=== PATIENT | female | born 1945 | race Caucasian/White ===

== ENCOUNTER 2022-12-18 14:46 | Emergency (ER) | payer MEDICARE, BC, SELFPAY ==
[2022-12-18] VITALS (8 sets, daily range): BP systolic 132–185; BP diastolic 65–102; PULSE 64–85; RESP 14–18; TEMP 36.7; O2SAT 96–98; BMI 29.9
--- NOTE | 2022-12-18 15:00 | XRR_ITS ---
PROCEDURE INFORMATION: Exam: XR Left Wrist Exam date and time: 12/18/2022 3:04 PM Age: 77 years old Clinical indication: Pain; Wrist; Left; Additional info: Injury/pain, fall TECHNIQUE: Imaging protocol: Radiologic exam of the left wrist. Views: 3 or more views. COMPARISON: No relevant prior studies available. FINDINGS: Bones/joints: Acute fractures involving the distal left radial metaphysis and left ulnar styloid. Soft tissues: Soft tissue swelling. XR/XR wrist LT min 3V* [id number] IMPRESSION: Acute fractures involving the distal left radial metaphysis and left ulnar styloid.
--- NOTE | 2022-12-18 15:17 | XRR_ITS ---
PROCEDURE INFORMATION: Exam: XR Chest Exam date and time: 12/18/2022 3:25 PM Age: 77 years old Clinical indication: Cough; Additional info: Confusion TECHNIQUE: Imaging protocol: Radiologic exam of the chest. Views: 1 view. COMPARISON: No relevant prior studies available. FINDINGS: Lungs: Hyperinflation and mild interstitial prominence, without infiltrate. Pleural spaces: No pleural effusion. Heart/: Cardiac silhouette upper limits of normal in size. Bones/joints: Degenerative change. Jaimie: Nonspecific 2.1 cm nodular density overlying the right hilum, which can be better characterized with contrast enhanced CT if clinically indicated. XR/XR chest 1V portable [id number] IMPRESSION: 1. Hyperinflation and mild interstitial prominence, without infiltrate. 2. Nonspecific 2.1 cm nodular density overlying the right hilum, which can be better characterized with contrast enhanced CT if clinically indicated.
--- NOTE | 2022-12-18 15:17 | CTR_ITS ---
PROCEDURE INFORMATION: Exam: CT Head Without Contrast Exam date and time: 12/18/2022 3:38 PM Age: 77 years old Clinical indication: Injury or trauma; Fall; Blunt trauma (contusions or hematomas); Additional info: Syncope and collapse TECHNIQUE: Imaging protocol: Computed tomography of the head without contrast. Radiation optimization: All CT scans at this facility use at least one of these dose optimization techniques: automated exposure control; mA and/or kV adjustment per patient size (includes targeted exams where dose is matched to clinical indication); or iterative reconstruction. REPORTING DATA: Count of CT and Cardiac NM exams in prior 12 months: This patient has received 0 known CTs and 0 known cardiac nuclear medicine studies in the 12 months prior to the current study. COMPARISON: No relevant prior studies available. RADIATION DOSE METRICS: Total DLP (mGy-cm): 1042.58 FINDINGS: Brain: Symmetric prominence of the cortical sulci. Mild small vessel ischemic change. No acute post-traumatic brain injury. Cerebral ventricles: Normal configuration of the ventricles. Paranasal sinuses: No sinus fluid. Mastoid air cells: No mastoid effusion. Bones/joints: No acute calvarial injury. Benign appearing ovoid lytic lesions in the occiput. Soft tissues: No significant scalp hematoma. CT/CT head wo con* [id number] IMPRESSION: No acute post-traumatic brain injury.
--- NOTE | 2022-12-18 15:44 | ED_ITS ---
HPI - Fall General: Chief Complaint: Fall Stated Complaint: fall/left wrist injury Time Seen by Provider: 12/18/22 15:00 History of Present Illness: 77-year-old female presents with her family chief complaint of having a syncopal episode prior to arrival in which she injured her left wrist. The patient apparently has had increased episodes of passing out she does not recall having any chest pain or palpitations prior to it or the sensation of dizziness in which she wakes up on the floor patient's last episode was roughly a month ago. The patient is scheduled to be seen by primary care within the next week for further assessment and management. Patient does report that she has been on some strong high blood pressure medications which her heart rate has been regulated down to the 40s in which there to determine may be the culprit. Patient does not endorse recently striking her head having any head injury secondary to her loss of consciousness she does not remark having any other associated injuries besides her left wrist patient presents to the ER for further assessment and management. Associated symptoms-after fall: Denies abdominal pain, chest pain or headache(s) Review of Systems General: Reports: 10 or more systems reviewed and unremarkable except in HPI and below Const: Denies: fever(s), chills, fatigue or malaise Eyes: Denies: change in vision or blurry vision Card: Denies: chest pain or palpitations Resp: Denies: dyspnea or productive cough GI: Denies: abdominal pain, nausea or vomiting : Denies: flank pain Musc: Reports: extremity pain, extremity swelling, joint pain and joint swelling Skin/Breast: Denies: rash or pruritus Neuro: Reports: frequent falls; Denies: headache(s) Psych: Denies: anxiety or depression Cuate/Lymph: Denies: easy bleeding All/Imm: Denies: urticaria, throat swelling or facial swelling Physical Exam Narrative: EXAM NARRATIVE: Patient is alert orient x3 GCS of 15 NIH of 0 no focal neurodeficit appreciated at this time Const: COMMON NORMALS: no acute distress, patient oriented x3 and healthy appearing HENMT: COMMON NORMALS: normocephalic and atraumatic HEAD & SCALP: normocephalic and atraumatic Eye: COMMON NORMALS: Equal, round and reactive pupils present and EOMs intact bilaterally PUPIL: Yes Equal, round and reactive pupils present Neck/C-Spine: COMMON NORMALS: full ROM, supple and no JVD Lymph: LYMPHATIC: no lymphadenopathy noted Chest: COMMONS NORMALS: normal inspection of the chest and normal palpation of entire chest wall Resp: COMMON NORMALS: normal respiratory effort, No retractions and clear to auscultation bilaterally EFFORT & INSPECTION: Yes able to speak in complete sentences and Yes symmetric chest movement AUSCULTATION: clear to auscultation bilaterally Cardio: COMMON NORMALS: no JVD, regular rate and regular rhythm RATE: regul ar rate RHYTHM: regular rhythm GI: COMMON NORMALS: Normal to inspection, nondistended, normoactive bowel sounds present, Soft to palpation and non-tender INSPECTION: Yes normal to inspection PALPATION: Yes Soft to palpation : COMMON NORMALS: Yes no CVA tenderness BLADDER/KIDNEY EXAM: Yes no CVA tenderness Back/Pelvis: COMMON NORMALS: no CVA tenderness Extremity: COMMON NORMALS: negative for normal to inspection and negative for full ROM (Obvious swelling and deformity appreciated to the left wrist neurovascular ) Neuro: COMMON NORMALS: patient oriented x3, CN's II-XII intact bilaterally, moves all extremities and no focal motor deficits Psych: COMMON NORMALS: mental status grossly normal, Normal thought process present, cooperative and normal affect THOUGHT PROCESS: Normal thought process present Skin: COMMON NORMALS: no rashes or lesions noted GENERAL SKIN EXAM: no rashes or lesions noted Course Vital Signs: Vital signs: Vital Signs Temperature 98.1 F 12/18/22 14:51 Pulse Rate 70 12/18/22 17:45 Respiratory Rate 15 12/18/22 17:45 Blood Pressure 139/79 12/18/22 17:45 Pulse Oximetry 96 12/18/22 17:45 Oxygen Delivery Me thod Room Air 12/18/22 14:51 MDM - Fall Medical Decision Making Due to patient's symptoms and condition an IV will be established cardiac neuro work-up will be obtained for the patient's recent syncopal episodes in which patient had an x-ray obtained of the left wrist that revealed a distal radius fracture. Patient was placed into a sugar-tong splint and provided limited doses of fentanyl for her pain control we will continue to follow. Remainder lab work imaging came back reassuring is unclear whether or not was contribute the patient having her recent syncopal episodes advise proper follow- up outpatient with primary care in 3 to 5 days and patient was advised to return the interim if any of her symptoms persist or she was provided with limited prescription of hydrocodone for her breakthrough pain control. Lab Data 12/18/22 15:49 12/18/22 15:49 Radiology Impressions Wrist X-Ray 12/18/22 15:00 IMPRESSION: Acute fractures involving the distal left radial metaphysis and left ulnar styloid. Chest X-Ray 12/18/22 15:17 IMPRESSION: 1. Hyperinflation and mild interstitial prominence, without infiltrate. 2. Nonspecific 2.1 cm nodular density overlying the right hilum, which can be better characterized with contrast enhanced CT if clinically indicated. Head CT 12/18/22 15:17 IMPRESSION: No acute post-traumatic brain injury. Chest CTA 12/18/22 16:51 IMPRESSION: 1. No evidence of pulmonary embolism. 2. No acute finding in the chest 3. Mild cardiomegaly 4. Coronary artery calcifications. Laboratory Results WBC 10.4 10^3/uL (4.0-10.0) H 12/18/22 15:49 RBC 4.87 10^6/uL (4.1-5.3) 12/18/22 15:49 Hgb 14.8 g/dL (11.5-15.3) 12/18/22 15:49 Hct 43.5 % (37.0-47.0) 12/18/22 15:49 MCV 89.3 fl (81-99) 12/18/22 15:49 MCH 30.4 pg (28.0-34.0) 12/18/22 15:49 MCHC 34.0 g/dL (30.0-36.0) 12/18/22 15:49 RDW 12.3 % (12.1-15.1) 12/18/22 15:49 Plt Count 196 10^3/cmm (130-400) 12/18/22 15:49 MPV 10.3 fL (7.4-10.4) 12/18/22 15:49 Neut % (Auto) 71.0 % 12/18/22 15:49 Lymph % (Auto) 19.0 % 12/18/22 15:49 [place] % (Auto) 7.0 % 12/18/22 15:49 Eos % (Auto) 1.9 % 12/18/22 15:49 Baso % (Auto) 0.7 % 12/18/22 15:49 Neut # (Auto) 7.37 10^3/uL (1.8-7.7) 12/18/22 15:49 Lymph # (Auto) 2.0 10^3/uL (0.8-4.8) 12/18/22 15:49 [place] # (Auto) 0.7 10^3/uL (0.2-0.9) 12/18/22 15:49 Eos # (Auto) 0.2 10^3/uL (0.0-0.8) 12/18/22 15:49 Baso # (Auto) 0.1 10^3/uL (0.0-0.1) 12/18/22 15:49 Nucleated RBC % (auto) 0 % 12/18/22 15:49 Nucleated RBCs # 0.0 /100WBC 12/18/22 15:49 Sodium 141 mmol/L (136-145) 12/18/22 15:49 Potassium 3.8 mmol/L (3.5-5.1) 12/18/22 15:49 Chloride 103 mmol/L (98-107) 12/18/22 15:49 Carbon Dioxide 27 mmol/L (22-29) 12/18/22 15:49 Anion Gap 14.8 (5-19) 12/18/22 15:49 BUN 13 mg/dL (8-23) 12/18/22 15:49 Creatinine 0.6 mg/dL (0.5-0.9) 12/18/22 15:49 GFR Calculation Not Reportable 12/18/22 15:49 Glucose 99 mg/dL (65-115) 12/18/22 15:49 Calculated Osmolality 292 mOsm/kg (285-295) 12/18/22 15:49 Calcium 9.6 mg/dL (8.5-10.5) 12/18/22 15:49 Total Bilirubin 0.5 mg/dL (0.15-1.2) 12/18/22 15:49 AST 23 U/L (0-32) 12/18/22 15:49 ALT 17 U/L (0-33) 12/18/22 15:49 Alkaline Phosphatase 83 U/L (35-105) 12/18/22 15:49 Troponin T Baseline 6 ng/L (0-10) 12/18/22 15:49 NT-Pro-B Natriuret Pep 204 pg/mL (0-450) 12/18/22 15:49 Total Protein 7.6 g/dL (6.6-8.7) 12/18/22 15:49 Albumin 4.5 g/dL (3.5-5.2) 12/18/22 15:49 Globulin 3.1 g/dL (1.3-4.6) 12/18/22 15:49 Urine Color Yellow (Yellow) 12/18/22 16:09 Urine Appearance Clear (CLEAR) 12/18/22 16:09 Urine pH 7 (5-7) 12/18/22 16:09 Ur Specific [place] 1.010 (1.005-1.030) 12/18/22 16:09 Urine Protein Neg (Negative) 12/18/22 16:09 Urine Glucose (UA) Norm (Normal) 12/18/22 16:09 Urine Ketones Negative (Negative) 12/18/22 16:09 Urine Blood Neg (Negative) 12/18/22 16:09 Urine Nitrate Negative (Negative) 12/18/22 16:09 Urine Bilirubin Neg (Negative) 12/18/22 16:09 Urine Urobilinogen Norm mg/dL (Negative) 12/18/22 16:09 Ur Leukocyte Esterase Negative (Negative) 12/18/22 16:09 Discharge Plan Discharge Patient Disposition: Home Clinical Impression: Syncope and collapse, Distal radius fracture, left Condition: Stable Prescriptions: New hydrocodone-acetaminophen 5-325 mg tablet 1 tab PO Q6H PRN (Reason: pain) Qty: 20 0RF No Action flaxseed oil 1,000 mg Capsule 1,000 mg PO DAILY Rx Instructions: administer with a meal clonidine HCl 0.2 mg tablet 0.2 mg PO BID famotidine 20 mg Tablet 20 mg PO DAILY hydrochlorothiazide 25 mg tablet 25 mg PO DAILY propranolol 120 mg capsule,extended release 24 hr 120 mg PO DAILY magnesium 200 mg Tablet 200 mg PO DAILY Vitamin D3 125 mcg (5,000 unit) Tablet 125 mcg PO DAILY Fish Oil 1,000 mg (120 mg-180 mg) Capsule 1 cap PO DAILY Women's Multivitamin 18 mg iron-400 mcg-500 mg Tablet 1 tab PO DAILY Discharge Orders: Discharge ED (Routine); Ordered 12/18/22 Ordered By: Tony Bustamante Referrals: Morelia Iglesias NP [Primary Care Provider] - 1-3 days Nallely Duke MD [Physician] - 4-7 days (For further assessment and management of your distal wrist fracture) Discharge Diet: Advance as tolerated Discharge Activity: Increase activity as tolerated Patient Instructions: Wrist Fracture in Adults (ED), Syncope (ED), Opioid Safety, Pain Management Activity Restrictions/Additional Instructions: Please follow-up follow-up your primary care doctor or orthopedic doctor next to 3 to 5 days use the provided splint until seen by them take medication as p rescribed and please return the interim if any of her symptoms persist or worse. Coding Level of Care Code ED [employer] for Sara Henderson
[2022-12-18 16:00] LABS: Basophils # 0.1 10^3/uL (0.0-0.1); Basophils % 0.7 %; Eosinophils # 0.2 10^3/uL (0.0-0.8); Eosinophils % 1.9 %; Hematocrit 43.5 % (37.0-47.0); Hemoglobin 14.8 g/dL (11.5-15.3); Mean Corpuscular Hemoglobin 30.4 pg (28.0-34.0); Mean Corpuscular Volume 89.3 fl (81-99); Mean Platelet Volume 10.3 fL (7.4-10.4); Monocytes # 0.7 10^3/uL (0.2-0.9); Neutrophils # 7.37 10^3/uL (1.8-7.7); Nucleated Red Blood Cells % 0 %; Platelet Count 196 10^3/cmm (130-400); Red Blood Count 4.87 10^6/uL (4.1-5.3); Red Cell Distribution Width 12.3 % (12.1-15.1); White Blood Count 10.4 10^3/uL (4.0-10.0)
--- NOTE | 2022-12-18 16:04 | ECG_ITS ---
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 Measurements Intervals [place] Rate: 58 P: 29 NE: 143 QRS: 4 QRSD: 91 T: 31 QT: 418 QTc: 412 Interpretive Statements SINUS BRADYCARDIA No previous ECG available for comparison Electronically Signed On 12-18-2022 19:26:47 CDT by Janna Talbert M.D. [id number]
[2022-12-18 16:26] LABS: Add Urine Microscopic? NO; Charge for UA Resulting for Rev
[2022-12-18 16:28] LABS: Bilirubin Urine Neg (Negative); Blood Urine Neg (Negative); Glucose Urine UA Norm (Normal); Ketones Urine Negative (Negative); Leukocyte Esterase Urine Negative (Negative); Nitrate Urine Negative (Negative); Protein Urine Neg (Negative); Urine Appearance Clear (CLEAR); Urine Color Yellow (Yellow); Urobilinogen Urine Norm (Negative); pH Urine 7 (5-7)
[2022-12-18 16:32] LABS: Troponin(5th) Baseline 6 ng/L (0-10)
[2022-12-18 16:41] LABS: Alanine Aminotransferase 17 U/L (0-33); Albumin Level 4.5 g/dL (3.5-5.2); Alkaline Phosphatase 83 U/L (35-105); Aspartate Amino Transferase 23 U/L (0-32); Blood Urea Nitrogen 13 mg/dL (8-23); Calcium 9.6 mg/dL (8.5-10.5); Carbon Dioxide 27 mmol/L (22-29); Chloride 103 mmol/L (98-107); Globulin 3.1 g/dL (1.3-4.6); Glucose 99 mg/dL (65-115); NT Pro B Type Natriuretic Pept 204 pg/mL (0-450); Osmolality Calculated 292 mOsm/kg (285-295); Sodium 141 mmol/L (136-145); Total Bilirubin 0.5 mg/dL (0.15-1.2); Total Protein 7.6 g/dL (6.6-8.7)
--- NOTE | 2022-12-18 16:51 | CTR_ITS ---
PROCEDURE INFORMATION: Exam: CTA Chest With Contrast Exam date and time: 12/18/2022 5:06 PM Age: 77 years old Clinical indication: Dyspnea; Additional info: Syncope and collapse with pulmonary nodule. TECHNIQUE: Imaging protocol: Computed tomographic angiography of the chest with contrast. 3D rendering (Not supervised by radiologist): MIP and/or 3D reconstructed images were created by the technologist. Radiation optimization: All CT scans at this facility use at least one of these dose optimization techniques: automated exposure control; mA and/or kV adjustment per patient size (includes targeted exams where dose is matched to clinical indication); or iterative reconstruction. Contrast material: OMNI 350; Contrast volume: 71 ml; Contrast route: INTRAVENOUS (IV); REPORTING DATA: Count of CT and Cardiac NM exams in prior 12 months: This patient has received 0 known CTs and 0 known cardiac nuclear medicine studies in the 12 months prior to the current study. COMPARISON: CR (CHEST, ) 12/18/2022 3:25 PM RADIATION DOSE METRICS: Total DLP (mGy-cm): 355.12 FINDINGS: Pulmonary arteries: There is no evidence of filling defects within the pulmonary arterial circulation to suggest pulmonary embolism. Aorta: There is moderate ectasia of the ascending thoracic aorta which measures 4 cm. There is no evidence of thoracic aortic dissection. Lungs: Lungs are clear. Pleural spaces: Unremarkable. No pneumothorax. No pleural effusion. Heart: The heart is mildly enlarged. Coronary arteries: There is moderate atherosclerotic calcification of the coronary arteries. Lymph nodes: There is no evidence of lymphadenopathy. Bones/joints: Unremarkable. No acute fracture. Soft tissues: Unremarkable. CT/CT angio chest PE protcl [id number] IMPRESSION: 1. No evidence of pulmonary embolism. 2. No acute finding in the chest 3. Mild cardiomegaly 4. Coronary artery calcifications.
[2022-12-18 16:59] LABS: Anion Gap 14.8 (5-19); Potassium 3.8 mmol/L (3.5-5.1)
[2022-12-18] MEDS: sodium chloride 0.9% 1,000 ML 999 ML IV (17:19)
[2022-12-18] MEDS: fentaNYL 50 mcg/mL INJ 2mL 25 MCG IVP (17:19)
[2022-12-18] MEDS: ondansetron 2 mg/ML SDV 2 mL 4 MG IVP (17:19)
[2022-12-18] MEDS: iohexol 350 mg/mL 500 mL Btl (per mL) IV (17:20)
[2022-12-18] MEDS: hyDRALAzine 20 mg/mL INJ 1 mL 10 MG IVP (17:29)
[2022-12-18] MEDS: fentaNYL 50 mcg/mL INJ 2mL IVP (17:35)
--- NOTE | 2022-12-18 17:41 | ECG_ITS ---
[facility] Test Date: 2022-12-18 Pat Name: Leena Bowser Department: Room: Gender: Female Professional Benefits Sales Consultant: : 1945 Requested By: Tony Bustamante Order Number: [id number] Segundo MD: Janna Talbert M.D. Measurements Intervals [place] Rate: 71 P: 67 IA: 176 QRS: 11 QRSD: 102 T: 40 QT: 407 QTc: 442 Interpretive Statements SINUS RHYTHM Compared to ECG 12/18/2022 16:04:50 Sinus bradycardia no longer present Electronically Signed On 12-18-2022 19:34:05 CDT by Janna Talbert M.D. [email or web address] systemLyon Collegecrystal clinic orth[facility] [email or web address]/[id number]
[2022-12-18 18:51] LABS: Troponin 5 2HR Delta 0 ABS# (0-10)
[2022-12-18] MEDS: HYDROcodone-acetaminophen 5-325 mg Tablet 2 TAB PO (18:56)
== END 2022-12-18 19:02 | disposition home or self-care (01) ==
PROVIDERS: Emergency Provider Emergency Medicine; PCP Nurse Practitioner Family
DX: R55 Syncope and collapse (principal); S52.502A Unspecified fracture of the lower end of left radius, initial encounter for closed fracture; W18.39XA Other fall on same level, initial encounter
CPT/HCPCS: 36415; 70450; 71045; 71275; 73110; 80053; 81003; 83880; 84484; 85025; 93005; 96361; 96374; 96375; 96376; 99285; J0360; J2405; J3010; J7030; Q9967

== ENCOUNTER → 2022-12-27 10:05 | Outpatient (BNVA) | payer MEDICARE, BC, SELFPAY | PROVIDERS: PCP Nurse Practitioner Family; Referring Provider Emergency Medicine; Visit Provider Specialist | DX: S52.502A Unspecified fracture of the lower end of left radius, initial encounter for closed fracture (principal); S52.602A Unspecified fracture of lower end of left ulna, initial encounter for closed fracture; W18.30XA Fall on same level, unspecified, initial encounter | CPT/HCPCS: 73110 ==

== ENCOUNTER 2022-12-27 14:39 | Outpatient (CLI) | payer MEDICARE, BC, SELFPAY | END 2022-12-27 14:40 | disposition home or self-care (01) | LOC: SPT 14:39 | PROVIDERS: PCP Nurse Practitioner Family; Visit Provider Specialist | DX: Z46.89 Encounter for fitting and adjustment of other specified devices (principal); S52.592D Other fractures of lower end of left radius, subsequent encounter for closed fracture with routine healing; X58.XXXD Exposure to other specified factors, subsequent encounter | CPT/HCPCS: 25600; 97760; 99204; L3982 ==

== ENCOUNTER → 2023-01-06 10:12 | Outpatient (BNVA) | payer MEDICARE, BC, SELFPAY | PROVIDERS: PCP Nurse Practitioner Family; Visit Provider Specialist | DX: S52.502D Unspecified fracture of the lower end of left radius, subsequent encounter for closed fracture with routine healing (principal); S52.602D Unspecified fracture of lower end of left ulna, subsequent encounter for closed fracture with routine healing; X58.XXXD Exposure to other specified factors, subsequent encounter | CPT/HCPCS: 73110; 99024 ==

== ENCOUNTER → 2023-02-02 10:34 | Outpatient (BNVA) | payer MEDICARE, BC, SELFPAY | PROVIDERS: PCP Nurse Practitioner Family; Visit Provider Specialist | DX: S52.502D Unspecified fracture of the lower end of left radius, subsequent encounter for closed fracture with routine healing (principal); S52.602D Unspecified fracture of lower end of left ulna, subsequent encounter for closed fracture with routine healing; X58.XXXD Exposure to other specified factors, subsequent encounter | CPT/HCPCS: 73110; 99024 ==

== ENCOUNTER 2023-02-15 08:17 | Outpatient (RCR) | payer MEDICARE, BC, SELFPAY | END 2023-03-07 23:59 | disposition home or self-care (01) | LOC: SOT 08:17 | PROVIDERS: PCP Nurse Practitioner Family; Visit Provider Specialist | DX: S62.102A Fracture of unspecified carpal bone, left wrist, initial encounter for closed fracture (principal); X58.XXXA Exposure to other specified factors, initial encounter | CPT/HCPCS: 97022; 97110; 97140; 97166; 97530 ==

== ENCOUNTER → 2023-02-23 10:15 | Outpatient (BNVA) | payer MEDICARE, BC, SELFPAY | PROVIDERS: PCP Nurse Practitioner Family; Visit Provider Specialist | DX: S52.502D Unspecified fracture of the lower end of left radius, subsequent encounter for closed fracture with routine healing (principal); S52.602D Unspecified fracture of lower end of left ulna, subsequent encounter for closed fracture with routine healing; X58.XXXD Exposure to other specified factors, subsequent encounter | CPT/HCPCS: 73110; 99024 ==

== ENCOUNTER 2023-03-08 06:00 | Outpatient (RCR) | payer MEDICARE, BC, SELFPAY | END 2023-04-07 23:59 | disposition home or self-care (01) | LOC: SOT 06:00 | PROVIDERS: PCP Nurse Practitioner Family; Visit Provider Specialist | DX: S62.102D Fracture of unspecified carpal bone, left wrist, subsequent encounter for fracture with routine healing (principal); X58.XXXD Exposure to other specified factors, subsequent encounter | CPT/HCPCS: 97022; 97110; 97140 ==

== ENCOUNTER 2024-04-14 22:37 | Emergency (ER) | payer MEDICARE, BC, SELFPAY ==
[2024-04-14 22:41] VITALS: BP 183/104; PULSE 66; RESP 17; TEMP 36.8; O2SAT 95; BMI 32.5
--- NOTE | 2024-04-14 22:52 | ED_ITS ---
HPI - Back Pain/Injury General: Chief Complaint: Back Pain/Injury Stated Complaint: Back /Leg/ Foot pain on left side Time Seen by Provider: 04/14/24 22:46 Source: patient Mode of arrival: ambulatory Limitations: no limitations History of Present Illness: Patient is a 79-year-old female who presents the emergency department complaining of left lower back pain with radiation down her left leg onset ch ronically but worsening past couple of days. States she was diagnosed with sciatica in the past, has not gotten relief from her [id number] medications. No recent trauma or injuries. No bowel or bladder issues, fever, or other red flag back symptoms. Ambulatory into the emergency department, though with pain. MD elicited complaint: back pain Pertinent past history: prior back pain Timing: progressively worsening Severity: severe Similar Symptoms Previously: Yes Quality: sharp Location: left lower back Radiation: left leg below the knee Exacerbating factors: movement Associated symptoms: Deny abdominal pain, chills, fever(s), nausea or vomiting Related Data Home Medications Medication Instructions Recorded Confirmed cholecalciferol (vitamin D3) 125 125 mcg PO DAILY 12/18/22 02/23/23 mcg (5,000 unit) tablet (Vitamin D3) clonidine HCl 0.2 mg tablet 0.2 mg PO BID 12/18/22 02/23/23 famotidine 20 mg tablet 20 mg PO DAILY 12/18/22 02/23/23 flaxseed oil 1,000 mg capsule 1,000 mg PO DAILY 12/18/22 02/23/23 hydrochlorothiazide 25 mg tablet 25 mg PO DAILY 12/18/22 02/23/23 magnesium 200 mg tablet 200 mg PO DAILY 12/18/22 02/23/23 gmtkurqg-cex-cejg-FA-Ca carb-vit K 1 tab PO DAILY 12/18/22 02/23/23 18 mg iron-400 mcg-500 mg tablet omega 9-keh-ysh-fish oil 1,000 mg 1 cap PO DAILY 12/18/22 02/23/23 (120 mg-180 mg) capsule (Fish Oil) propranolol 120 mg capsule,24 120 mg PO DAILY 12/18/22 02/23/23 hr,extended release Previous Rx's Medication Instructions Recorded hydrocodone 5 mg-acetaminophen 325 1 tab PO Q6H PRN pain #20 tabs 12/18/22 mg tablet Fast Form Splint #1 ea 12/27/22 naproxen 500 mg tablet 500 mg PO BID PRN pain #30 tabs 04/15/24 Allergies Allergy/AdvReac Type Severity Reaction Status Date / Time No Known Allergies Allergy Verified 04/14/24 22:44 Review of Systems General: Reports: 10 or more systems reviewed and unremarkable except in HPI and below Const: Denies: fever(s) or chills Card: Denies: chest pain Resp: Denies: dyspnea or productive cough GI: Denies: abdominal pain, nausea, vomiting or diarrhea : Denies: flank pain Musc: Reports: back pain and extremity pain; Denies: neck pain, extremity swelling, joint pain, joint swelling, joint redness, joint warmth, limited range of motion or muscle weakness Skin/Breast: Denies: rash Neuro: Denies: headache(s), numbness in extremities or weakness in extremities Physical Exam Const: COMMON NORMALS: no acute distress, patient oriented x3, no limitations, healthy appearing, alert and well nourished HENMT: COMMON NORMALS: normocephalic and atraumatic HEAD & SCALP: normocephalic and atraumatic Neck/C-Spine: COMMON NORMALS: full ROM, supple and no meningeal signs Resp: COMMON NORMALS: normal respiratory effort, No use of accessory muscles a nd clear to auscultation bilaterally AUSCULTATION: clear to auscultation bilaterally Cardio: COMMON NORMALS: regular rate and regular rhythm RATE: regular rate RHYTHM: regular rhythm Back/Pelvis: OTHER: Parathoracic muscles on the left side somewhat tender to palpation, no spinous process tenderness. No step-off deformity or signs of trauma Extremity: COMMON NORMALS: normal to inspection, full ROM, capillary refill normal, no joint enlargement and no clubbing, cyanosis or edema Neuro: COMMON NORMALS: patient oriented x3, moves all extremities, no focal motor deficits, no sensory deficits noted and deep tendon reflexes 2+ bilaterally SENSORIUM/ORIENTATION: Yes alert MENINGEAL SIGNS: Yes no meningeal signs Skin: COMMON NORMALS: no rashes or lesions noted GENERAL SKIN EXAM: no rashes or lesions noted Course Vital Signs: Vital signs: Vital Signs Temperature 98.3 F 04/14/24 22:41 Pulse Rate 70 04/15/24 00:05 Respiratory Rate 16 04/15/24 00:05 Blood Pressure 160/94 09/08/24 00:05 Pulse Oximetry 95 04/15/24 00:05 Oxygen Delivery Me thod Room Air 04/14/24 22:41 MDM - Back Pain/Injury Medical Decision Making Patient reported with complaints of and acute exacerbation of her sciatica. No recent trauma was reported. She had no red flag back symptoms to report. Vitals were normal. She did report some relief after receiving muscle relaxer and pain medicine, and will be discharged on muscle relaxers. No need for imaging at this time. He is instructed to follow-up with primary care for further evaluation if she continues to have pain. No radiology studies performed this visit Discharge Plan Discharge Patient Disposition: Home Clinical Impression: Sciatica Qualifiers: Laterality: left Qualified Code(s): M54.32 - Sciatica, left side Condition: Stable Prescriptions: New naproxen 500 mg tablet 500 mg PO BID PRN (Reason: pain) Qty: 30 0RF No Action (DME) Fast Form Splint See Rx Instructions .Route .MEDSUPPLY Qty: 1 0RF Rx Instructions: As directed flaxseed oil 1,000 mg Capsule 1,000 mg PO DAILY Rx Instructions: administer with a meal clonidine HCl 0.2 mg tablet 0.2 mg PO BID famotidine 20 mg Tablet 20 mg PO DAILY hydrochlorothiazide 25 mg tablet 25 mg PO DAILY propranolol 120 mg capsule,extended release 24 hr 120 mg PO DAILY magnesium 200 mg Tablet 200 mg PO DAILY Vitamin D3 125 mcg (5,000 unit) Tablet 125 mcg PO DAILY Fish Oil 1,000 mg (120 mg-180 mg) Capsule 1 cap PO DAILY Women's Multivitamin 18 mg iron-400 mcg-500 mg Tablet 1 tab PO DAILY hydrocodone-acetaminophen 5-325 mg tablet 1 tab PO Q6H PRN (Reason: pain) Qty: 20 0RF Discharge Orders: Discharge ED (Routine); Ordered 04/15/24 Ordered By: Vinay Foster Referrals: Morelia Iglesias NP [Primary Care Provider] - Discharge Diet: Usual diet Discharge Activity: Increase activity as tolerated Patient Instructions: Sciatica (ED) Activity Restrictions/Additional Instructions: Take naproxen as prescribed. Gentle range of motion exercises as tolerated. Follow-up with primary care with any furthering of pain. Apply ice and heat as you have been doing. Return with any new or worsening. Coding Level of Care Code ED First Officer And Flight Instructor for Sara Henderson
[2024-04-14] MEDS: ketorolac 60 mg/2 mL INJ IM (22:56)
[2024-04-14] MEDS: orphenadrine 30 mg/mL Inj 2 mL 60 MG IM (22:56)
[2024-04-14] MEDS: dexamethasone 10 mg/mL INJ IM (23:36)
[2024-04-14] MEDS: HYDROcodone-acetaminophen 7.5-325 mg Tablet 1 TAB PO (23:36)
[2024-04-15 00:05] VITALS: BP 160/94; PULSE 70; RESP 16; O2SAT 95
== END 2024-04-15 00:09 | disposition home or self-care (01) ==
PROVIDERS: Emergency Provider Physician Assistant; PCP Nurse Practitioner Family
DX: M54.32 Sciatica, left side (principal)
CPT/HCPCS: 96372; 99284; J1100; J1885; J2360

== ENCOUNTER 2024-04-17 09:17 | Emergency (ER) | payer MEDICARE, BC, SELFPAY ==
[2024-04-17 09:21] VITALS: BP 181/81; PULSE 57; RESP 18; TEMP 36.8; O2SAT 94; BMI 32.5
--- NOTE | 2024-04-17 09:23 | ED_ITS ---
HPI - Back Pain/Injury 2 General: Chief Complaint: Back Pain/Injury Stated Complaint: Back Pain Time Seen by Provider: 04/17/24 09:22 Source: patient Mode of arrival: EMS Limitations: no limitations History of Present Illness: Patient is a 79-year-old female presents to ED today with a complaint of left hip and lower leg pain. Patient states her symptoms initially began approximately 1 to 1.5 months ago. She was initially seen by her primary care provider through the [place] [facility]. She states she was initially prescribed physical therapy but by the time they called to set up sessions her pain had subsided. Patient states she went approximately 3 weeks without pain/completely asymptomatic until around last week when pain began again. No known injury/trauma/or provoking factors. Patient has been seen by PCP again and was seen here in our emergency department on Tuesday for identical symptoms. States she has been taking Naproxen and Lortab without relief of her symptoms. Patient states the pain starts in the posterior aspect of the left hip and then radiates down the left lower extremity mainly on the lateral aspect. She has not noticed any swelling to the extremity. No color or temperature changes. She is not having any saddle anesthesia or urinary retention/bowel incontinence. She feels like pain is worse with ambulation. MD elicited complaint: other (L hip/LE pain) Onset (ago): day(s) Timing: constant Severity: severe Similar Symptoms Previously: Yes Location: left lower back Radiation: left leg below the knee Exacerbating factors: walking Relieving factors: none Associated symptoms: Reports no associated symptoms and difficulty walking; Deny abdominal pain, chills, dysuria, fatigue, fever(s) or urinary urgency Work related injury: No Related Data Home Medications Medication Instructions Recorded Confirmed cholecalciferol (vitamin D3) 125 125 mcg PO DAILY 12/18/22 04/17/24 mcg (5,000 unit) tablet (Vitamin D3) clonidine HCl 0.2 mg tablet 0.2 mg PO BID 12/18/22 04/17/24 famotidine 20 mg tablet 20 mg PO DAILY 12/18/22 04/17/24 hydrochlorothiazide 25 mg tablet 25 mg PO DAILY 12/18/22 04/17/24 magnesium 200 mg tablet 200 mg PO DAILY 12/18/22 04/17/24 wxukjgku-bam-dmja-FA-Ca carb-vit K 1 tab PO DAILY 12/18/22 04/17/24 18 mg iron-400 mcg-500 mg tablet propranolol 120 mg capsule,24 120 mg PO DAILY 12/18/22 04/17/24 hr,extended release Previous Rx's Medication Instructions Recorded hydrocodone 5 mg-acetaminophen 325 1 tab PO Q6H PRN pain #20 tabs 12/18/22 mg tablet Fast Form Splint #1 ea 12/27/22 naproxen 500 mg tablet 500 mg PO BID PRN pain #30 tabs 04/15/24 gabapentin 300 mg capsule 300 mg PO DAILY #60 caps 04/17/24 Allergies Allergy/AdvReac Type Severity Reaction Status Date / Time No Known Allergies Allergy Verified 04/14/24 22:44 Review of Systems 2 Const: Denies: fever(s), chills, body aches, fatigue or malaise Card: Denies: chest pain Resp: Denies: dyspnea GI: Denies: abdominal pain : Denies: flank pain, difficulty voiding, dysuria, urinary frequency, urinary urgency or urinary hesitancy Musc: Reports: extremity pain and joint pain; Denies: neck pain, extremity swelling, joint swelling, joint redness, joint warmth or limited range of motion Skin/Breast: Denies: rash Neuro: Reports: difficulty walking; Denies: headache(s), numbness in extremities or weakness in extremities Physical Exam 2 Const: COMMON NORMALS: no acute distress, average body habitus, patient oriented x3, no limitations, healthy appearing, alert and well nourished G ENERAL APPEARANCE: cooperative ORIENTATION/CONSCIOUSNESS: Yes awake, Yes oriented to person, Yes oriented to place and Yes oriented to time OTHER: states she received 100mcg fentanyl in route and pain is better now than it has been in several days; feels a little nauseous Neck/C-Spine: COMMON NORMALS: full ROM and no meningeal signs CERVICAL SPINE: No Cervical spine tenderness and No Paracervical muscle tenderness Resp: COMMON NORMALS: normal respiratory effort : COMMON NORMALS: Yes no CVA tenderness BLADDER/KIDNEY EXAM: Yes no CVA tenderness Back/Pelvis: COMMON NORMALS: no CVA tenderness, thoracic and lumbar spine normal to inspection, no thoracic nor lumbar tenderness, thoraco-lumbar ROM normal and straight leg raise negative bilaterally LUMBAR SPINE/LOWER BACK: N o lumbar spinal tenderness PELVIS: Yes buttock abnormal Buttock abnormal laterality: left Left buttock abnormal details: tenderness and Yes sciatic notch tenderness SACROILIAC JOINTS: Yes SI joints normal SACRUM: no tenderness COCCYX: no tenderness BACK IMAGE (FEMALE): 1. TTP Extremity: COMMON NORMALS: normal to inspection, full ROM, capillary refill normal, no joint enlargement, no clubbing, cyanosis or edema, no calf tenderness and no pedal edema GENERAL: Yes normal exam except as noted Neuro: COMMON NORMALS: patient oriented x3, moves all extremities, no focal motor deficits and no sensory deficits noted SENSORIUM/ORIENTATION: Yes alert, Yes oriented to person, Yes oriented to place and Yes oriented to time MENINGEAL SIGNS: Yes no meningeal signs Skin: COMMON NORMALS: no rashes or lesions noted GENERAL SKIN EXAM: no rashes or lesions noted Course 2 Vital Signs: Vital signs: Vital Signs Temperature 98.2 F 04/17/24 09:21 Pulse Rate 57 L 04/17/24 10:42 Respiratory Rate 18 04/17/24 09:21 Blood Pressure 159/123 04/17/24 10:42 Pulse Oximetry 97 04/17/24 10:42 Oxygen Delivery Me thod Room Air 04/17/24 10:42 MDM - Back Pain/Injury Medical Decision Making Patient feels better after IV medications given here. She was ambulatory here with palpable walker. Patient would like to go home. Recommend she follow-up with her primary care provider. She did have physical therapy ordered at one point and this may be beneficial going forward. She has been on Lortab and Naproxen at home without relief. She has been given steroids and muscle relaxers in the past as well. Will try her on gabapentin and primary care can taper this as needed. Return ED precautions given. Medical Records I reviewed the patient's medical records. No radiology studies performed this visit Discharge Plan Discharge Patient Disposition: Home Clinical Impression: Acute pain of left lower extremity Condition: Stable Prescriptions: New gabapentin 300 mg capsule 300 mg PO DAILY Qty: 60 0RF Rx Instructions: Take 300mg PO QD x 1 day, then 300mg PO BID x 1 day, then 300mg PO TID thereafter No Action (DME) Fast Form Splint See Rx Instructions .Route .MEDSUPPLY Qty: 1 0RF Rx Instructions: As directed naproxen 500 mg tablet 500 mg PO BID PRN (Reason: pain) Qty: 30 0RF clonidine HCl 0.2 mg tablet 0.2 mg PO BID famotidine 20 mg Tablet 20 mg PO DAILY hydrochlorothiazide 25 mg tablet 25 mg PO DAILY propranolol 120 mg capsule,extended release 24 hr 120 mg PO DAILY magnesium 200 mg Tablet 200 mg PO DAILY cholecalciferol (vitamin D3) [Vitamin D3] 125 mcg (5,000 unit) Tablet 125 mcg PO DAILY Women's Multivitamin 18 mg iron-400 mcg-500 mg Tablet 1 tab PO DAILY hydrocodone-acetaminophen 5-325 mg tablet 1 tab PO Q6H PRN (Reason: pain) Qty: 20 0RF Discharge Orders: Discharge ED (Routine); Ordered 04/17/24 Ordered By: Delia Recio Referrals: Morelia Iglesias NP [Primary Care Provider] - Activity Restrictions/Additional Instructions: As we discussed, I would like you to follow-up with your primary care provider for further evaluation and treatment of your leg/hip pain. I would like you to speak to her regarding physical therapy. Coding Level of Care Code ED Underwear Trimmer for Sara Henderson
[2024-04-17] MEDS: metoclopramide 5 mg/mL SDV 2 mL 10 MG IVP (10:38)
[2024-04-17] MEDS: orphenadrine 30 mg/mL Inj 2 mL 60 MG IVP (10:38)
[2024-04-17 10:42] VITALS: BP 159/123; PULSE 57; O2SAT 97
[2024-04-17] MEDS: methylPREDNISolone sod succ 125 mg/2 mL INJ IVP (10:42)
[2024-04-17 11:49] VITALS: BP 124/74; PULSE 58; O2SAT 58
== END 2024-04-17 12:01 | disposition home or self-care (01) ==
PROVIDERS: Emergency Provider Physician Assistant; PCP Nurse Practitioner Family
DX: M79.605 Pain in left leg (principal)
CPT/HCPCS: 96374; 96375; 99284; J2360; J2765; J2919

== ENCOUNTER 2024-04-20 11:37 | Outpatient (CLI) | payer MEDICARE, BC, SELFPAY ==
--- NOTE | 2024-04-20 11:45 | XR_ITS ---
WS: [id number] XR pelvis 1-2V* [id number] REASON FOR EXAM: SCIATICA LEFT SIDE FINDINGS: Bony pelvis is intact. No sacral insufficiency fractures. Mild to moderate osteoarthritis, symmetric, both hips. XR/XR pelvis 1-2V* [id number] IMPRESSION: No acute abnormality.
--- NOTE | 2024-04-20 11:46 | XR_ITS ---
WS: [id number] XR lumbar spine 2-3V* [id number] REASON FOR EXAM: SCIATICA LEFT SIDE FINDINGS: Relatively normal lumbar curvatures. Mild biconcave biconcave compression deformities of L4 and L5. These appear chronic. There are more significant compression deformities of L1-L3, most significantly L1 and L2. There is s clerosis and significant osteophytosis at L1-L2. There is noted to be moderate compression deformities of T11 and T12 as well. Mild narrowing of the L5-S1 disc space. The remaining disc spaces are intact and relatively well pres erved. There are 2 to 3 mm of anterolisthesis of L3 in relation to L2. XR/XR lumbar spine 2-3V* [id number] IMPRESSION: Multiple compression deformities in the lumbar and thoracic spine. Compression deformities in the lower thoracic spine and upper lumbar spine are of uncertain chronicity and potentially could be subacute compression fractures.
== END 2024-04-20 11:38 | disposition home or self-care (01) ==
LOC: RAD 11:39
PROVIDERS: PCP Nurse Practitioner Family; Visit Provider Nurse Practitioner Family
DX: M54.32 Sciatica, left side (principal); M16.0 Bilateral primary osteoarthritis of hip; M43.8X7 Other specified deforming dorsopathies, lumbosacral region
CPT/HCPCS: 72100; 72170

== ENCOUNTER 2024-04-21 16:05 | Observation (INO) | payer MEDICARE, BC, SELFPAY ==
[2024-04-21] VITALS (7 sets, daily range): BP systolic 143–197; BP diastolic 92–116; PULSE 71–86; RESP 18; TEMP 36.8; O2SAT 90–95
--- NOTE | 2024-04-21 16:20 | ED_ITS ---
Documented by User: Milton Cutler DO 04/21/24 18:17 HPI - Extremity Problem 2 General: Chief complaint: Extremity Injury, Lower Stated complaint: left leg pain Time Seen by Provider: 04/21/24 16:08 History of Present Illness: 79-year-old female presents emergency ro om she fell last week is complaining of left leg pain and back pain she has been seen a couple of times at different facilities. She had some plain films earlier in the week she had not heard the results of those yet she also been seen at [place] no recurrent injury is not able to stand to have pain she was given fentanyl and route she denies any fecal incontinence or urinary retention Associated symptoms: Deny chest pain, fever(s) or rash Related Data Home Medications Medication Instructions Recorded Confirmed cholecalciferol (vitamin D3) 125 125 mcg PO DAILY 12/18/22 04/17/24 mcg (5,000 unit) tablet (Vitamin D3) clonidine HCl 0.2 mg tablet 0.2 mg PO BID 12/18/22 04/17/24 famotidine 20 mg tablet 20 mg PO DAILY 12/18/22 04/17/24 hydrochlorothiazide 25 mg tablet 25 mg PO DAILY 12/18/22 04/17/24 magnesium 200 mg tablet 200 mg PO DAILY 12/18/22 04/17/24 [id number]-hwk-ribc-FA-Ca carb-vit K 1 tab PO DAILY 12/18/22 04/17/24 18 mg iron-400 mcg-500 mg tablet propranolol 120 mg capsule,24 120 mg PO DAILY 12/18/22 04/17/24 hr,extended release Previous Rx's Medication Instructions Recorded hydrocodone 5 mg-acetaminophen 325 1 tab PO Q6H PRN pain #20 tabs 12/18/22 mg tablet Fast Form Splint #1 ea 12/27/22 naproxen 500 mg tablet 500 mg PO BID PRN pain #30 tabs 04/15/24 gabapentin 300 mg capsule 300 mg PO DAILY #60 caps 04/17/24 methylprednisolone 4 mg tablets in See Rx Instructions PO .COMPLEX 04/21/24 a dose pack (Medrol (Mk)) #21 ea oxycodone-acetaminophen 7.5 mg-325 1 tab PO Q6H PRN pain #10 tabs 04/21/24 mg tablet (Percocet) Allergies Allergy/AdvReac Type Severity Reaction Status Date / Time No Known Allergies Allergy Verified 04/14/24 22:44 Review of Systems 2 Const: Denies: fever(s) or chills Card: Denies: chest pain Resp: Denies: dyspnea GI: Denies: abdominal pain : Denies: dysuria, urinary frequency or urinary urgency Musc: Reports: back pain; Denies: neck pain Skin/Breast: Denies: rash PFSH ED 2 PFSH: Medical History (Updated 04/21/24 @ 23:17 by Ludin Vyas MD) History of hypertension Surgical History (Updated 04/21/24 @ 23:16 by Ludin Vyas MD) No pertinent past surgical history Social History (Updated 04/21/24 @ 23:16 by Ludin Vyas MD) Smoking and tobacco/nicotine status: never used tobacco/nicotine Alcohol intake: never Substance/Drug Use: never Physical Exam 2 Const: COMMON NORMALS: no acute distress GENERAL APPEARANCE: cooperative and comfortable ORIENTATION/CONSCIOUSNESS: Yes awake, Yes oriented to person, Yes oriented to place and Yes oriented to time HENMT: COMMON NORMALS: normocephalic, atraumatic and hearing grossly normal bilaterally HEAD & SCALP: normocephalic and atraumatic Resp: COMMON NORMALS: normal respiratory effort, No retractions, No use of accessory muscles and clear to auscultation bilaterally AUSCULTATION: clear to auscultation bilaterally Cardio: COMMON NORMALS: regular rate, regular rhythm and No murmurs present (Cardio) RATE: regular rate RHYTHM: regular rhythm GI: COMMON NORMALS: Soft to palpation and No hepatosplenomegaly present A USCULTATION: Yes normoactive bowel sounds PALPATION: Yes Soft to palpation, No Tenderness to palpation present (GI), No Guarding due to palpation present (GI) and Yes No hepatosplenomegaly present Extremity: COMMON NORMALS: normal to inspection, capillary refill normal, no clubbing, cyanosis or edema, no calf tenderness and no pedal edema OTHER: Dorsum plantarflexion 5 of 5 in the lower extremities sensation normal Neuro: SENSORIUM/ORIENTATION: Yes oriented to person, Yes oriented to place and Yes oriented to time Skin: COMMON NORMALS: no rashes or lesions noted GENERAL SKIN EXAM: no rashes or lesions noted Course 2 Vital Signs: Vital signs: Vital Signs Temperature 98.6 F 04/22/24 00:24 Pulse Rate 78 04/22/24 00:24 Respiratory Rate 19 H 04/22/24 00:24 Blood Pressure 160/82 04/22/24 00:24 Pulse Oximetry 96 04/22/24 00:24 Oxygen Delivery Me thod Room Air 04/22/24 00:24 MDM - Extremity (Nontraumatic) Medical Decision Making Care signed out to Dr. Nielsen] At change of shift. See final notes for diagnosis and disposition. Lab Data 04/21/24 23:09 04/21/24 23:09 Radiology Impressions Lumbar Spine CT 04/21/24 16:21 IMPRESSION: 1. Chronic moderate L1 compression fracture similar to the prior radiographs. 2. There are degenerative changes as described above. No evidence for acute fracture. XR interpretation done by ED provider, pending radiology final review Discharge Plan Discharge Patient Disposition: Placed in Observation Admit Provider: Ludin Vyas Clinical Impression: Sciatica Condition: Stable Coding Level of Care Code ED Lift Slab Operator for Chg Fwd Documented by User: Connor Souza DO 04/22/24 00:50 HPI - Extremity Problem 2 General: Chief complaint: Extremity Injury, Lower Stated complaint: left leg pain Time Seen by Provider: 04/21/24 16:08 Related Data Home Medications Medication Instructions Recorded Confirmed cholecalciferol (vitamin D3) 125 125 mcg PO DAILY 12/18/22 04/17/24 mcg (5,000 unit) tablet (Vitamin D3) clonidine HCl 0.2 mg tablet 0.2 mg PO BID 12/18/22 04/17/24 famotidine 20 mg tablet 20 mg PO DAILY 12/18/22 04/17/24 hydrochlorothiazide 25 mg tablet 25 mg PO DAILY 12/18/22 04/17/24 magnesium 200 mg tablet 200 mg PO DAILY 12/18/22 04/17/24 isxymnrt-dqb-mkof-FA-Ca carb-vit K 1 tab PO DAILY 05/13/23 09/10/24 18 mg iron-400 mcg-500 mg tablet propranolol 120 mg capsule,24 120 mg PO DAILY 12/18/22 04/17/24 hr,extended release Previous Rx's Medication Instructions Recorded hydrocodone 5 mg-acetaminophen 325 1 tab PO Q6H PRN pain #20 tabs 12/18/22 mg tablet Fast Form Splint #1 ea 12/27/22 naproxen 500 mg tablet 500 mg PO BID PRN pain #30 tabs 04/15/24 gabapentin 300 mg capsule 300 mg PO DAILY #60 caps 04/17/24 methylprednisolone 4 mg tablets in See Rx Instructions PO .COMPLEX 04/21/24 a dose pack (Medrol (Mk)) #21 ea oxycodone-acetaminophen 7.5 mg-325 1 tab PO Q6H PRN pain #10 tabs 04/21/24 mg tablet (Percocet) Allergies Allergy/AdvReac Type Severity Reaction Status Date / Time No Known Allergies Allergy Verified 04/14/24 22:44 PFSH ED 2 PFSH: Medical History (Updated 04/21/24 @ 23:17 by Ludin Vyas MD) History of hypertension Surgical History (Updated 04/21/24 @ 23:16 by Ludin Vyas MD) No pertinent past surgical history Social History (Updated 04/21/24 @ 23:16 by Ludin Vyas MD) Smoking and tobacco/nicotine status: never used tobacco/nicotine Alcohol intake: never Substance/Drug Use: never Course 2 Vital Signs: Vital signs: Vital Signs Temperature 98.6 F 04/22/24 00:24 Pulse Rate 78 04/22/24 00:24 Respiratory Rate 19 H 04/22/24 00:24 Blood Pressure 160/82 04/22/24 00:24 Pulse Oximetry 96 04/22/24 00:24 Oxygen Delivery Me thod Room Air 04/22/24 00:24 MDM - Extremity (Nontraumatic) Medical Decision Making Care signed out to Dr. Nielsen] At change of shift. See final notes for diagnosis and disposition. Patient checked out to me at shift change. Patient has been hypertensive, but missed her clonidine at home. Since clonidine administration, blood pressures improved. CT shows chronic moderate compression of L1 similar to prior radiographs. Degenerative changes are noted. There is no other fracture, no evidence of retropulsion. Pain is relieved here after IV dexamethasone and Dilaudid. She wishes to go home. We are walking her currently. This patient failed her walk test. She was not able to get out of bed due to increased pain, radicular down the left lower extremity. Then, no red flag symptoms. She will be admitted. Hospitalist is aware. Lab Data 04/21/24 23:09 04/21/24 23:09 Radiology Impressions Lumbar Spine CT 04/21/24 16:21 IMPRESSION: 1. Chronic moderate L1 compression fracture similar to the prior radiographs. 2. There are degenerative changes as described above. No evidence for acute fracture. Discharge Plan Discharge Patient Disposition: Placed in Observation Admit Provider: Ludin Vyas Clinical Impression: Sciatica Condition: Stable Coding Level of Care Code ED Lift Slab Operator for Sara Henderson
--- NOTE | 2024-04-21 16:21 | CTR_ITS ---
PROCEDURE INFORMATION: Exam: CT Lumbar Spine Without Contrast Exam date and time: 04/21/2024 4:40 PM Age: 79 years old Clinical indication: Pain; Lumbago with sciatica; Left; Additional info: Back pain TECHNIQUE: Imaging protocol: Computed tomography of the lumbar spine without contrast. Radiation optimization: All CT scans at this facility use at least one of these dose optimization techniques: automated exposure control; mA and/or kV adjustment per patient size (includes targeted exams where dose is matched to clinical indication); or iterative reconstruction. COMPARISON: CR XR lumbar spine 2-3V* [id number] 04/20/2024 11:54 AM RADIATION DOSE METRICS: Total DLP (mGy-cm): 1223.66 FINDINGS: Bones/joints: Chronic appearing moderate L1 compression fracture appears similar to the prior radiographs. There are degenerative changes throughout the visualized spine including marginal osteophyte formations, endplate degenerative changes, and facet arthropathy. Multilevel disc space narrowing. L1-L2: No significant disc bulge or herniation. No severe spinal canal stenosis. No significant neural foraminal narrowing. L2-L3: No significant disc bulge or herniation. No severe spinal canal stenosis. No significant neural foraminal narrowing. L3-L4: No significant disc bulge or herniation. No severe spinal canal stenosis. No significant neural foraminal narrowing. L4-L5: Minimal disc bulge and moderate facet arthropathy without significant canal or neural foramina stenosis. L5-S1: There is a minimal disc bulge, posterior osteophytes, and moderate to severe facet arthropathy with moderate narrowing of the left neural foramen and mild narrowing of the right neural foramen. Soft tissues: There are benign-appearing soft tissue calcifications. CT/CT lumbar spine wo con* [id number] IMPRESSION: 1. Chronic moderate L1 compression fracture similar to the prior radiographs. 2. There are degenerative changes as described above. No evidence for acute fracture.
[2024-04-21] MEDS: orphenadrine 30 mg/mL Inj 2 mL 60 MG IM (16:56)
[2024-04-21] MEDS: dexamethasone 10 mg/mL INJ IM (16:56)
[2024-04-21] MEDS: ondansetron 4 MG Tablet PO (19:44)
[2024-04-21] MEDS: cloNIDine 0.1 mg Tablet PO (20:34)
[2024-04-21] MEDS: HYDROmorphone 1 mg/mL INJ 1 mL IVP (20:41)
--- NOTE | 2024-04-21 20:42 | PC.NURSE ---
1 mg Dialuadid IVP administered. Manual scan was put in due to putting syringe into sharps prior to scanning, witnessed by Bobbi SCHULTZ.
--- NOTE | 2024-04-21 22:22 | PC.NURSE ---
ORDER OF EVENTS REGARDING SEIZURE AND INTUBATION, RECORDED BY RUTH BENEDICT RN Note put in chart by this nurse per request of primary nurse 1925-- seizure postictal - bagging, HR 85, last BP 98/75 @0 1930-- intubation perfomred by Dr oSuza 1930-- 0.5mg atropine and ABG obtained 1931-- 4mg Ativan, HR 99 1937-- O2 67%, HR 140 1941-- Move to ED 11, ABG results, HR 124 1943-- O2 88%, XR, BP 99/82
[2024-04-21] MEDS: HYDROmorphone 1 mg/mL INJ 1 mL 0.5 MG IVP (22:40)
--- NOTE | 2024-04-21 23:14 | PM.HP ---
Providers/Chief Complaint Primary Care Provider: Morelia Iglesias NP Chief Complaint: left leg pain History of Present Illness Leena Bowser is a 79 year old female with a past medical history of hypertension, who presents [facility] for left lower back pain, left sciatica. Patient tells me that about a week ago, she was sitting in her recliner and she got up she experienced sudden onset of left lower back pain, shooting like sensation radiating down her leg into her foot, no fall, no injury, no urinary continence no bowel incontinence, no saddle or perianal anesthesia, no fevers, but did have weakness due to severe pain. She saw her primary care provider was diagnosed with sciatica was placed on steroids, several other medications but had persistent pain, this is her third ER visit in the last week, due to persistent lower back pain, denies any dysuria, no hematuria, no fevers, chills, no cough, no injuries, no falls Review of Systems Card: Denies: chest pain Resp: Denies: dyspnea Medications/Allergies Home Medications Medication Instructions Recorded Confirmed Last Taken Type cholecalciferol (vitamin D3) 125 125 mcg PO DAILY 12/18/22 04/17/24 04/17/24 History mcg (5,000 unit) tablet (Vitamin D3) clonidine HCl 0.2 mg tablet 0.2 mg PO BID 12/18/22 04/17/24 04/17/24 History famotidine 20 mg tablet 20 mg PO DAILY 12/18/22 04/17/24 04/17/24 History hydrochlorothiazide 25 mg tablet 25 mg PO DAILY 12/18/22 04/17/24 04/17/24 History hydrocodone 5 mg-acetaminophen 325 1 tab PO Q6H PRN pain #20 tabs 12/18/22 04/17/24 04/17/24 Rx mg tablet magnesium 200 mg tablet 200 mg PO DAILY 12/18/22 04/17/24 12/18/22 History vjqsvufo-wlk-onel-FA-Ca carb-vit K 1 tab PO DAILY 12/18/22 04/17/24 04/17/24 History 18 mg iron-400 mcg-500 mg tablet propranolol 120 mg capsule,24 120 mg PO DAILY 12/18/22 04/17/24 04/17/24 History hr,extended release Fast Form Splint #1 ea 12/27/22 04/17/24 Unknown Rx naproxen 500 mg tablet 500 mg PO BID PRN pain #30 tabs 04/15/24 04/17/24 04/17/24 Rx gabapentin 300 mg capsule 300 mg PO DAILY #60 caps 04/17/24 Unknown Rx methylprednisolone 4 mg tablets in See Rx Instructions PO .COMPLEX 04/21/24 Unknown Rx a dose pack (Medrol (Mk)) #21 ea oxycodone-acetaminophen 7.5 mg-325 1 tab PO Q6H PRN pain #10 tabs 04/21/24 Unknown Rx mg tablet (Percocet) Allergies Allergy/AdvReac Type Severity Reaction Status Date / Time No Known Allergies Allergy Verified 04/14/24 22:44 PFSH Acute PFSH: Medical History (Updated 04/21/24 @ 23:17 by Ludin Vyas MD) History of hypertension Surgical History (Updated 04/21/24 @ 23:16 by Ludin Vyas MD) No pertinent past surgical history Social History (Updated 04/21/24 @ 23:16 by Ludin Vyas MD) Smoking and tobacco/nicotine status: never used tobacco/nicotine Alcohol intake: never Substance/Drug Use: never Vitals/I&O/Wt Last Vital Signs Temp 98.2 F 04/21/24 16:13 Pulse 79 04/21/24 22:44 Resp 18 04/21/24 22:40 BP 143/92 04/21/24 22:44 Pulse Ox 94 04/21/24 22:44 O2 Del Method Room Air 04/21/24 22:44 Weight last 48 hrs Weight 86.183 kg Physical Exam Const: COMMON NORMALS: no acute distress and patient oriented x3 HENMT: COMMON NORMALS: normocephalic HEAD & SCALP: normocephalic Neck/C-Spine: COMMON NORMALS: no JVD Resp: COMMON NORMALS: normal respiratory effort, No retractions, No use of accessory muscles and clear to auscultation bilaterally AUSCULTATION: clear to auscultation bilaterally Cardio: COMMON NORMALS: no JVD, regular rate, regular rhythm, S1 normal heart sound present and S2 normal heart sound present RATE: regular rate RHYTHM: regular rhythm HEART SOUNDS: S1 normal heart sound present and S2 normal heart sound present GI: COMMON NORMALS: Normal to inspection, nondistended, normoactive bowel sounds present, Soft to palpation and non-tender Extremity: COMMON NORMALS: no calf tenderness and no pedal edema Neuro: COMMON NORMALS: patient oriented x3, CN's II-XII intact bilaterally and moves all extremities OTHER: Has equal strength in bilateral lower extremities, Psych: COMMON NORMALS: mental status grossly normal A&P Assessment and plan (1) Acute pain of left lower extremity: (2) Acute low back pain: (3) Left-sided low back pain with sciatica: Plan Acute low back pain, left-sided sciatica -Intractable pain ? No alarm symptoms, no urinary continence, no bowel incontinence, no saddle or perianal anesthesia -CT lumbar spine CT/CT lumbar spine wo con* [id number] IMPRESSION: 1. Chronic moderate L1 compression fracture similar to the prior radiographs. 2. There are degenerative changes as described above. No evidence for acute fracture. -Admit to MedSurg -Continue Dilaudid for pain control -continue Decadron -Increase gabapentin to 300 mg p.o. twice daily -PT OT -MRI lumbar spine -Discussed with orthopedic service in the morning for possible surgical intervention -DNR/DNI, confirmed with patient multiple times ? Lovenox for DVT prophylaxis Attestations Medical Necessity Statement*: Patient requires hospitalization for intractable back pain, acute low back pain left-sided sciatica, failure of outpatient therapy 3 ER visits, required IV pain control, outpatient with observation Diagnoses Acute pain of left lower extremity M79.605 Acute low back pain M54.50 Left-sided low back pain with sciatica M54.42
[2024-04-21 23:38] LABS: Basophils % 0.1 %; Hematocrit 44.5 % (36-47); Lymphocytes # 2.3 10^3/uL (0.8-4.8); Lymphocytes % 14.2 %; Mean Corpuscular HGB Conc 33.3 g/dL (30-55); Mean Corpuscular Hemoglobin 31.2 pg (27-33); Mean Corpuscular Volume 93.9 fl (85-98); Mean Platelet Volume 9.8 fL (7.4-10.4); Monocytes # 0.3 10^3/uL (0.2-0.9); Monocytes % 2.1 %; Neutrophils # 13.03 10^3/uL (1.8-7.7); Neutrophils % 82.5 %; Nucleated Red Blood Cells % 0 %; Platelet Count 281 10^3/cmm (157-399); Red Blood Count 4.74 10^6/uL (3.85-5.65); White Blood Count 15.81 10^3/uL (3.29-11.43)
[2024-04-21 23:53] LABS: Erythrocyte Sedimentation Rate 5 mm/hr (0-15)
[2024-04-21 23:54] LABS: Add Urine Microscopic? YES; Bilirubin Urine 1+ (Negative); Blood Urine Neg (Negative); Glucose Urine UA Norm (Normal); Ketones Urine Negative (Negative); Leukocyte Esterase Urine Negative (Negative); Nitrate Urine Negative (Negative); Protein Urine 1+ (Negative); Urine Appearance Slightly Cloudy (CLEAR); Urine Color Yellow (Yellow); Urobilinogen Urine Norm (Negative); pH Urine 5 (5-7)
[2024-04-21 23:55] LABS: Bacteria Urine 1+ /hpf; RBC Urine 0-4 /hpf (0-2); UA Manual Slide Review YES; WBC Urine 0-4 /hpf (0-5)
--- NOTE | 2024-04-21 23:55 | PC.NURSE ---
Report was called to Nadia LEE on [place]. All questions and concerns were addressed at time of report.
[2024-04-21 23:56] LABS: Alanine Aminotransferase 20 U/L (0-33); Albumin Level 4.2 g/dL (3.5-5.2); Alkaline Phosphatase 80 U/L (35-105); Anion Gap 17.1 (5-19); Aspartate Amino Transferase 19 U/L (0-32); Blood Urea Nitrogen 28 mg/dL (8-23); Calcium 8.9 mg/dL (8.5-10.5); Carbon Dioxide 25 mmol/L (22-29); Chloride 101 mmol/L (98-107); Creatinine Clr Calc Pharmacy 54.7276; Globulin 2.7 g/dL (1.3-4.6); Glucose 202 mg/dL (65-115); Osmolality Calculated 299 mOsm/kg (285-295); Potassium 4.1 mmol/L (3.5-5.1); Sodium 139 mmol/L (136-145); Total Bilirubin 0.3 mg/dL (0.15-1.2); Total Protein 6.9 g/dL (6.6-8.7)
[2024-04-21 23:57] LABS: Lactic Sepsis W/Reflex 3.7 mmol/L (0.5-2.2)
[2024-04-22] VITALS (20 sets, daily range): BP systolic 153–196; BP diastolic 60–91; PULSE 62–79; RESP 16–20; TEMP 36.6–37; O2SAT 92–96
[2024-04-22] MEDS: pantoprazole 40 mg SDV IVP (01:04)
[2024-04-22] MEDS: enoxaparin 40 mg/0.4 mL Syringe SUBCUT (01:05)
[2024-04-22] MEDS: gabapentin 300 mg Capsule PO ×2 (01:05→10:53)
[2024-04-22 01:18] LABS: Reflex Lactate Order REFLEX LACTIC ORDERD
[2024-04-22 02:03] LABS: Thyroid Stimulating Hormone 0.27 uIU/mL (0.27-4.20)
[2024-04-22] MEDS: HYDROmorphone 1 mg/mL INJ 1 mL 0.5 MG IVP ×5 (02:40→20:50)
[2024-04-22 02:45] LABS: Lactic Acid level (Lactate) 2.9 mmol/L (0.5-2.2)
[2024-04-22] MEDS: dexamethasone 10 mg/mL INJ 6 MG IVP (07:37)
[2024-04-22] MEDS: cloNIDine 0.1 mg Tablet PO ×2 (07:37→16:48)
[2024-04-22] MEDS: oxyCODONE-APAP 5-325 mg Tablet 1 TAB PO ×3 (10:53→23:08)
[2024-04-22] MEDS: hydroCHLOROthiazide 25 mg Tablet PO (10:53)
--- NOTE | 2024-04-22 12:29 | P.PN_ITS ---
Subjective 2 Subjective: Patient complaining of left-sided hip pain shooting all the way down toward her toes Requesting MR RI of lumbar spine Depending on MRI report we will make further plans Currently patient is requesting more pain medications Change Decadron to p.o. regimen Change opioids to oxycodone along gabapentin Vitals/I&O/Wt Last Vital Signs Temp 98.1 F 04/22/24 12:00 Pulse 65 04/22/24 12:00 Resp 16 04/22/24 10:53 BP 166/86 04/22/24 12:00 Pulse Ox 95 04/22/24 12:00 O2 Del Method Room Air 04/22/24 12:00 04/21/24 04/22/24 04/22/24 22:59 06:59 14:59 Intake Total 240 / 240 Balance 240 / 240 Weight last 48 hrs Weight 101.877 kg Weight 99.019 kg Weight 86.183 kg Physical Exam 2 Narrative: Patient is awake and alert GCS 15 Hypertensive No tachycardia Pleasant cough Currently on room air Symptoms consistent with sciatica No signs of cauda equina Data 04/21/24 23:09 04/21/24 23:09 A&P Assessment and plan (1) Sciatica: Qualifiers: Laterality: left Qualified Code(s): M54.32 - Sciatica, left side (2) Acute low back pain: (3) Acute pain of left lower extremity: Plan Sciatica Rule out nerve compression Requesting MRI Patient also has compression fracture L1 No signs of cauda equina Patient lives alone, depending on MRI report will make further plan Holding off on propranolol for now Continue hydrochlorothiazide along other antihypertensive treatment patient is DNR/DNI Currently on regular diet Opioids along bowel regimen. Attestations 2 Medical Necessity Statement*: Will make further plans after reviewing MRI report Diagnoses Sciatica M54.32 Laterality: left Acute low back pain M54.50 Acute pain of left lower extremity M79.605
[2024-04-22] MEDS: dexamethasone 4 mg Tablet PO ×3 (12:54→20:51)
[2024-04-22] MEDS: docusate sodium 100 mg Capsule PO (16:48)
[2024-04-23] VITALS (20 sets, daily range): BP systolic 129–174; BP diastolic 82–97; PULSE 73–118; RESP 16–20; TEMP 36.7–37.2; O2SAT 91–96
[2024-04-23] MEDS: pantoprazole 40 mg SDV IVP (00:44)
[2024-04-23] MEDS: enoxaparin 40 mg/0.4 mL Syringe SUBCUT (00:44)
[2024-04-23] MEDS: gabapentin 300 mg Capsule PO ×2 (00:44→11:56)
[2024-04-23] MEDS: HYDROmorphone 1 mg/mL INJ 1 mL 0.5 MG IVP ×6 (00:44→22:54)
[2024-04-23] MEDS: oxyCODONE-APAP 5-325 mg Tablet 1 TAB PO ×5 (03:09→20:08)
[2024-04-23 06:20] LABS: Basophils % 0.1 %; Hematocrit 42.9 % (36-47); Lymphocytes # 2.3 10^3/uL (0.8-4.8); Lymphocytes % 15.2 %; Mean Corpuscular Hemoglobin 30.7 pg (27-33); Mean Corpuscular Volume 90.1 fl (85-98); Mean Platelet Volume 9.8 fL (7.4-10.4); Monocytes # 0.7 10^3/uL (0.2-0.9); Monocytes % 4.5 %; Neutrophils % 79.3 %; Nucleated Red Blood Cells % 0 %; Platelet Count 278 10^3/cmm (157-399); Red Blood Count 4.76 10^6/uL (3.85-5.65); White Blood Count 15.25 10^3/uL (3.29-11.43)
[2024-04-23 06:38] LABS: Anion Gap 14.1 (5-19); Blood Urea Nitrogen 26 mg/dL (8-23); Carbon Dioxide 28 mmol/L (22-29); Chloride 101 mmol/L (98-107); Creatinine Clr Calc Pharmacy 67.3122; Glucose 133 mg/dL (65-115); Osmolality Calculated 295 mOsm/kg (285-295); Potassium 4.1 mmol/L (3.5-5.1); Sodium 139 mmol/L (136-145)
[2024-04-23] MEDS: docusate sodium 100 mg Capsule PO ×2 (08:24→16:52)
[2024-04-23] MEDS: hydroCHLOROthiazide 25 mg Tablet PO (08:24)
[2024-04-23] MEDS: cloNIDine 0.1 mg Tablet PO ×2 (08:24→16:52)
[2024-04-23] MEDS: dexamethasone 4 mg Tablet PO ×4 (08:24→20:09)
--- NOTE | 2024-04-23 10:34 | PC.CHAP ---
Pastoral Care Encounter/Spiritual Assessment Type of Contact [] Declined sweep press operator visit [] Patient/Family/Request visit [] Outpatient visit [] Follow-up visit [] Physician referral [] Code/Alert [x] Routine visit [] Staff referral [] Actively dying [] Patient sleeping [] Family support [] [] Out of room [] Palliative care [] [] Receiving care in room [] Pre-surgical visit [] Trauma [] Long length of stay [] ICU visit [] Other: Relational/Emotional Strength [] Patient feels connected with others/family/visitors/staff [] Distress [] Loneliness/isolation [] Abandonment Spirituality of Patient [x] Person of Rufina [] Attends Christian of their Rufina [x] Believes in Prayer [] Reads Bible or Bahai materials [] There are Spiritual issues to be addressed Lead Section Supervisor Interventions [x] Prayer [x] Active listening [] Non-anxious presence [] Spiritual/emotional support [] Crisis/trauma care [] Spiritual counseling [] Bereavement support [] Provided bereavement packet [x] Provided Bible/devotional materials [] Provided toy/stuffed animal, coloring book to patient or family member [] Provided Communion [] Anointing/[place] [] Salvation [x] Completed spiritual assessment [] Other: Impact on Illness or Injury [] Angry [] Fearful [] Anxious [] Often cries [] Exhaustion [] Unable to work [] Unable to attend amish [] Unable to walk/stand [] Unable to read [] Unable to drive [] Unable to eat/drink [] Unable to sleep [] Unable to be with family [] Patient intubated [] Other: Summary Time spent with patient 5 min
--- NOTE | 2024-04-23 11:05 | P.PN_ITS ---
Subjective 2 Subjective: patient is still endorsing severe pain, stating that she is not able to put weight on her left side because pain gets worse Could not go for MRI yesterday MRI pending today Vitals/I&O/Wt Last Vital Signs Temp 98.4 F 04/23/24 08:00 Pulse 103 H 04/23/24 08:00 Resp 18 04/23/24 10:59 BP 163/97 04/23/24 08:24 Pulse Ox 96 04/23/24 08:24 O2 Del Method Room Air 04/23/24 08:00 04/22/24 04/23/24 04/23/24 22:59 06:59 14:59 Intake Total 240 / 720 120 / 120 Output Total 250 / 250 200 / 450 Balance -10 / 470 -200 / 270 120 / 120 Weight last 48 hrs Weight 101.877 kg Weight 101.877 kg Weight 99.019 kg Weight 86.183 kg Physical Exam 2 Narrative: Awake and alert Sitting in her bed Nonfocal neuroexam No signs of cauda equina GCS 15 Tachycardia Hypertensive Data 04/23/24 05:34 04/23/24 05:34 A&P Assessment and plan (1) Sciatica: Qualifiers: Laterality: left Qualified Code(s): M54.32 - Sciatica, left side (2) Acute low back pain: (3) Left-sided low back pain with sciatica: (4) Acute pain of left lower extremity: (5) Hypertensive urgency: Plan MRI is pending that we will dictate our next plan, Hypertensive urgency Continue clonidine add propranolol No signs of cauda equina continue Decadron for now Patient lives alone, stating that she is not able to put any weight on left side because pain gets worse Continue neuropathic pain management with gabapentin and opioids for now Patient noting constipation, will request lactulose as well Attestations 2 Medical Necessity Statement*: Further plan will be made after MRI report Diagnoses Sciatica M54.32 Laterality: left Acute low back pain M54.50 Left-sided low back pain with sciatica M54.42 Acute pain of left lower extremity M79.605 Hypertensive urgency I16.0
[2024-04-23] MEDS: lactulose oral liq 20 gm/30 mL UDC PO (11:56)
[2024-04-23] MEDS: propranolol 20 mg Tablet 30 MG PO (16:53)
[2024-04-24] VITALS (9 sets, daily range): BP systolic 150–161; BP diastolic 74–80; PULSE 76–83; RESP 16–17; TEMP 36.7–37; O2SAT 94–95
[2024-04-24] MEDS: gabapentin 300 mg Capsule PO ×2 (00:31→11:22)
[2024-04-24] MEDS: pantoprazole 40 mg SDV IVP (00:31)
[2024-04-24] MEDS: enoxaparin 40 mg/0.4 mL Syringe SUBCUT (00:31)
--- NOTE | 2024-04-24 02:13 | PC.NURSE ---
peyton has complaints of pain on a scale of 0-10 she rates it at an 8. she is requesting iv apin meds dilaudid, nurse informs her the time she can have it at 0240. patient states she understands and states ok.
[2024-04-24] MEDS: HYDROmorphone 1 mg/mL INJ 1 mL 0.5 MG IVP ×2 (03:04→09:31)
[2024-04-24] MEDS: polyethylene glycol 3350 Pkt 17 gm PO (04:06)
[2024-04-24] MEDS: propranolol 20 mg Tablet 30 MG PO (09:30)
[2024-04-24] MEDS: cloNIDine 0.1 mg Tablet PO (09:30)
[2024-04-24] MEDS: docusate sodium 100 mg Capsule PO (09:30)
[2024-04-24] MEDS: hydroCHLOROthiazide 25 mg Tablet PO (09:30)
[2024-04-24] MEDS: dexamethasone 4 mg Tablet PO ×2 (09:30→12:48)
--- NOTE | 2024-04-24 09:30 | MR_ITS ---
WS: [id number] MRI LUMBAR SPINE NONCONTRAST TECHNIQUE: Sagittal T1, T2 and STIR imaging. Axial T1 and T2 imaging. CLINICAL INFORMATION: pain COMPARISON: None. FINDINGS: Images significant degraded by motion. Mild lumbar curve. Compression fractures difficult to evaluate due to extensive motion. Mild compress ion superior endplate at L1 with endplate Schmorl's node and trace edema may be due to subacute to ch ronic compression. Difficult to further evaluate due to motion. Trace edema in the superior endplate L2. No retropulsion. L1-L2: Normal. L2-L3: Mild annular bulging. Mild facet arthropathy. Mild RIGHT greater than LEFT foraminal narrowing . Slight narrowing of the LEFT subarticular recess. L3-L4: Mild annular bulging. Mild LEFT foraminal narrowing. Mild facet arthropathy. L4-L5: Mild annular bulging. Moderate facet arthropathy. Spinal canal and foramen are patent. L5-S1: Mild annular bulging. LEFT foraminal protrusion impinges the exiting LEFT L5 nerve root latera lly. RIGHT foramen is patent. Visualized pelvic bony structures: Normal. Paravertebral soft tissues: Normal. MR/MR lumbar spine wo con* [id number] IMPRESSION: Images significantly degraded by motion. MRI could be repeated when pain is better controlled. 1. Compression fracture chronicity difficult to evaluate due to extensive asa on. 2. Mild compression superior endplate L1 with endplate Schmorl's node with tra ce edema may be subacute to chronic. 3. Tiny amount of edema in the superior end plate L2 may be due to slight rece nt compression. 4. No high-grade central canal stenosis. 5. Moderate LEFT L5-S1 foraminal narrowing with a LEFT foraminal protrusion
[2024-04-24] MEDS: lactulose oral liq 20 gm/30 mL UDC 30 GM PO (11:22)
[2024-04-24] MEDS: oxyCODONE-APAP 5-325 mg Tablet 1 TAB PO (11:22)
--- NOTE | 2024-04-24 11:35 | PM.DCS ---
Discharge Providers Date of Admission: 04/21/24 22:41 Date of Discharge: April 24, 2024 Attending Provider at Admission: Ludin Vyas MD Attending Provider at Discharge: Bartolome Wong MD Primary Care Provider: Morelia Iglesias NP Diagnoses at Discharge Discharge Diagnosis (1) Sciatica: Status: Acute Qualifiers: Laterality: left Qualified Code(s): M54.32 - Sciatica, left side (2) Acute low back pain: Status: Acute (3) Left-sided low back pain with sciatica: Status: Acute (4) Acute pain of left lower extremity: Status: Acute (5) Hypertensive urgency: Status: Acute Reason for Visit Reason for Visit: left leg pain Hospital Course Hospital Course 79-year female who was admitted for management evaluation of excruciating back pain, there was no signs of cauda equina, MRI was requested which took us long time to get inpatient, it is not showing any nerve compression, there is some edema, L1 chronic fracture, patient is stating that she would like to go home, requesting a walker, I will give her outpatient spine surgery follow-up, no acute surgical indication, no signs of cauda equina before discharge She is hemodynamically stable. She was suffering from constipation, received lactulose had 1 bowel movement in the hospital. IMPRESSION: Images significantly degraded by motion. MRI could be repeated when pain is better controlled. 1. Compression fracture chronicity difficult to evaluate due to extensive motion. 2. Mild compression superior endplate L1 with endplate Schmorl's node with trace edema may be subacute to chronic. 3. Tiny amount of edema in the superior end plate L2 may be due to slight recent compression. 4. No high-grade central canal stenosis. 5. Moderate LEFT L5-S1 foraminal narrowing with a LEFT foraminal protrusion Physical Exam Narrative: Awake and alert No signs of cauda equina Pleasant cooperative Discharge Data Studies Completed and Pending Completed Studies During Hospitalization Category Date Time Status CT lumbar spine wo con* [id number] Stat Cat Scan 04/21/24 16:21 Completed MR lumbar spine wo con* [id number] Routine MRI 04/24/24 09:30 Completed Radiology Impressions Lumbar Spine CT 04/21/24 16:21 IMPRESSION: 1. Chronic moderate L1 compression fracture similar to the prior radiographs. 2. There are degenerative changes as described above. No evidence for acute fracture. Lumbar Spine MRI 04/24/24 09:30 IMPRESSION: Images significantly degraded by motion. MRI could be repeated when pain is better controlled. 1. Compression fracture chronicity difficult to evaluate due to extensive motion. 2. Mild compression superior endplate L1 with endplate Schmorl's node with trace edema may be subacute to chronic. 3. Tiny amount of edema in the superior end plate L2 may be due to slight recent compression. 4. No high-grade central canal stenosis. 5. Moderate LEFT L5-S1 foraminal narrowing with a LEFT foraminal protrusion Laboratory Results WBC 15.25 10^3/uL (3.29-11.43) H 04/23/24 05:34 RBC 4.76 10^6/uL (3.85-5.65) 04/23/24 05:34 Hgb 14.60 g/dL (11.27-16.99) 04/23/24 05:34 Hct 42.9 % (36-47) 04/23/24 05:34 MCV 90.1 fl (85-98) 04/23/24 05:34 MCH 30.7 pg (27-33) 04/23/24 05:34 MCHC 34.0 g/dL (30-55) 04/23/24 05:34 RDW 13.0 % (12.1-15.1) 04/23/24 05:34 Plt Count 278 10^3/cmm (157-399) 04/23/24 05:34 MPV 9.8 fL (7.4-10.4) 04/23/24 05:34 Neut % (Auto) 79.3 % 04/23/24 05:34 Lymph % (Auto) 15.2 % 04/23/24 05:34 [place] % (Auto) 4.5 % 04/23/24 05:34 Eos % (Auto) 0.0 % 04/23/24 05:34 Baso % (Auto) 0.1 % 04/23/24 05:34 Neut # (Auto) 12.10 10^3/uL (1.8-7.7) H 04/23/24 05:34 Lymph # (Auto) 2.3 10^3/uL (0.8-4.8) 04/23/24 05:34 [place] # (Auto) 0.7 10^3/uL (0.2-0.9) 04/23/24 05:34 Eos # (Auto) 0.0 10^3/uL (0.0-0.8) 04/23/24 05:34 Baso # (Auto) 0.0 10^3/uL (0.0-0.1) 04/23/24 05:34 Nucleated RBC % (auto) 0 % 04/23/24 05:34 Nucleated RBCs # 0.0 /100WBC 04/23/24 05:34 ESR 5 mm/hr (0-15) 04/21/24 23:09 Sodium 139 mmol/L (136-145) 04/23/24 05:34 Potassium 4.1 mmol/L (3.5-5.1) 04/23/24 05:34 Chloride 101 mmol/L (98-107) 04/23/24 05:34 Carbon Dioxide 28 mmol/L (22-29) 04/23/24 05:34 Anion Gap 14.1 (5-19) 04/23/24 05:34 BUN 26 mg/dL (8-23) H 04/23/24 05:34 Creatinine 0.8 mg/dL (0.5-0.9) 04/23/24 05:34 GFR Calculation Not Reportable 04/23/24 05:34 Glucose 133 mg/dL (65-115) H 04/23/24 05:34 Calculated Osmolality 295 mOsm/kg (285-295) 04/23/24 05:34 Lactic Acid 3.7 mmol/L (0.5-2.2) H 04/21/24 23:09 Lactic Acid (Sepsis) 2.9 mmol/L (0.5-2.2) H 04/22/24 02:08 Calcium 9.0 mg/dL (8.5-10.5) 04/23/24 05:34 Magnesium 2.0 mg/dL (1.7-2.3) 04/23/24 05:34 Total Bilirubin 0.3 mg/dL (0.15-1.2) 04/21/24 23:09 AST 19 U/L (0-32) 04/21/24 23:09 ALT 20 U/L (0-33) 04/21/24 23:09 Alkaline Phosphatase 80 U/L (35-105) 04/21/24 23:09 C-Reactive Protein 3.0 mg/L (0.0-4.9) 04/21/24 23:09 Total Protein 6.9 g/dL (6.6-8.7) 04/21/24 23:09 Albumin 4.2 g/dL (3.5-5.2) 04/21/24 23:09 Globulin 2.7 g/dL (1.3-4.6) 04/21/24 23:09 TSH 0.27 uIU/mL (0.27-4.20) 04/21/24 23:09 Urine Color Yellow (Yellow) 04/21/24 23:04 Urine Appearance Slightly cloudy (CLEAR) 04/21/24 23:04 Urine pH 5 (5-7) 04/21/24 23:04 Ur Specific [place] 1.020 (1.005-1.030) 04/21/24 23:04 Urine Protein 1+ (Negative) H 04/21/24 23:04 Urine Glucose (UA) Norm (Normal) 04/21/24 23:04 Urine Ketones Negative (Negative) 04/21/24 23:04 Urine Blood Neg (Negative) 04/21/24 23:04 Urine Nitrate Negative (Negative) 04/21/24 23:04 Urine Bilirubin 1+ (Negative) H 04/21/24 23:04 Urine Urobilinogen Norm mg/dL (Negative) 04/21/24 23:04 Ur Leukocyte Esterase Negative (Negative) 04/21/24 23:04 Urine RBC 0-4 /hpf (0-2) H 04/21/24 23:04 Urine WBC 0-4 /hpf (0-5) H 04/21/24 23:04 Ur Squamous Epith Cells 10-15 /hpf (0-5) H 04/21/24 23:04 Amorphous Sediment Not Reportable 04/21/24 23:04 Urine Bacteria 1+ /hpf (NONE) H 04/21/24 23:04 Vitals Last Vital Signs Temp 98.4 F 04/24/24 04:00 Pulse 80 04/24/24 05:49 Resp 17 04/24/24 11:22 BP 158/74 04/24/24 09:30 Pulse Ox 95 04/24/24 11:22 O2 Del Method Room Air 04/24/24 04:00 Discharge Plan Discharge Patient Disposition: Home Condition: Stable Prescriptions: New Percocet 7.5-325 mg tablet 1 tab PO Q6H PRN (Reason: pain) Qty: 10 0RF hydrochlorothiazide 25 mg Tablet 25 mg PO BIDWMEAL Qty: 60 0RF Rx Instructions: Hold if blood pressure below 130/60 Senna-S 8.6-50 mg tablet 1 tab-cap PO DAILY Qty: 20 0RF lactulose 20 gram/30 mL solution 30 g PO BID PRN (Reason: constipation) Qty: 1200 0RF dexamethasone 4 mg tablet 4 mg PO Q8H Qty: 15 0RF Continued naproxen 500 mg tablet 500 mg PO BID PRN (Reason: pain) Qty: 30 0RF clonidine HCl 0.2 mg tablet 0.2 mg PO BID famotidine 20 mg Tablet 20 mg PO DAILY hydrochlorothiazide 25 mg tablet 25 mg PO DAILY propranolol 120 mg capsule,extended release 24 hr 120 mg PO DAILY magnesium 200 mg Tablet 200 mg PO DAILY cholecalciferol (vitamin D3) [Vitamin D3] 125 mcg (5,000 unit) Tablet 125 mcg PO DAILY hydrocodone-acetaminophen 5-325 mg tablet 1 tab PO Q6H PRN (Reason: pain) Qty: 20 0RF gabapentin 300 mg capsule 300 mg PO TID omega-3 fatty acids-vitamin E 1,000 mg Capsule 1 cap PO DAILY Discharge Orders: Discharge Order (Routine); Ordered 04/24/24 Ordered By: Bartolome Wong Other Ambulatory Orders: DME: [facility] (Order) Timeframe: 3 Months Location: None Selected Ordered By: Bartolome Wong Referrals: Robert Negron DO [Physician] - 1-3 days Morelia Iglesias NP [Primary Care Provider] - 1-3 days Patient Instructions: Sciatica (ED), Opioid Safety, Pain Management Activity Restrictions/Additional Instructions: . Begin taking the medication prescribed tonight, 1/2 pill every 6 hours as needed. If this is not relieving your pain, you may increase to 1 whole pill every 6 hours as needed. The steroid medication should help with the pain that radiates down your leg over time. Call the orthopedic clinic on Tuesday, to ask for an appointment with our spine surgeon regarding your compression fracture. See your doctor this week. Return for any problems. Discharge Attestations Time Spent in Discharge Care*: greater than 30 min Quality Metrics Clinical Quality Measures [ No reported AMI, CVA or VTE this stay] Coding Level of Care Code Acute Code for Chg Fwd Diagnoses Sciatica M54.32 Laterality: left Acute low back pain M54.50 Left-sided low back pain with sciatica M54.42 Acute pain of left lower extremity M79.605 Hypertensive urgency I16.0
== END 2024-04-24 14:53 | disposition home health service (06) ==
LOC: ER 21:36 → MEDSURG 23:27
PROVIDERS: Admitting Provider Family Medicine; Emergency Provider Emergency Medicine; PCP Nurse Practitioner Family; Visit Provider Internal Medicine
DX: M54.42 Lumbago with sciatica, left side (principal); M79.605 Pain in left leg; I16.0 Hypertensive urgency; I10 Essential (primary) hypertension
CPT/HCPCS: 36415; 72131; 72148; 80048; 80053; 81001; 83605; 83735; 84443; 85025; 85651; 86140; 94664; 96372; 96374; 96375; 96376; 97161; 97167; 97530; 99285; G0378; J1100; J1170; J1650; J2360; J2470; J8540; Q0162

== ENCOUNTER 2024-04-27 03:49 | Emergency (ER) | payer MEDICARE, BC, SELFPAY ==
[2024-04-27 03:50] VITALS: BP 129/89; PULSE 57; RESP 16; TEMP 36.9; O2SAT 95; BMI 30.9
--- NOTE | 2024-04-27 03:52 | XRR_ITS ---
PROCEDURE INFORMATION: Exam: XR Abdomen Exam date and time: 04/27/2024 4:28 AM Age: 79 years old Clinical indication: Constipation; Additional info: Abd pain constipation TECHNIQUE: Imaging protocol: Radiologic exam of the abdomen. Views: Frontal supine view of the abdomen. 1 View. COMPARISON: MR lumbar spine wo con* [id number] 04/24/2024 7:55 AM FINDINGS: Gastrointestinal tract: Normal. No bowel dilation. Moderate colonic fecal material suggesting constipation. Bones/joints: Unremarkable. XR/XR abdomen 1V* [id number] IMPRESSION: No acute findings.
--- NOTE | 2024-04-27 04:06 | W.ED.ABDPA2 ---
HPI - Abdominal Pain General: Chief Complaint: Abdominal Pain Stated Complaint: CONSTIPATION Time Seen by Provider: 04/27/24 03:52 History of Present Illness: Presents to the ER with complaints of constipation abdominal pain. She says she been constipated for 2 weeks, been taking laxatives with no help. Patient says she has been on narcotic pain medicine for low back pain sciatic pain. Patient was just discharged from the hospital where she was inpatient for multiple days due to back pain and possible compression fractures. Related Data Home Medications Medication Instructions Recorded Confirmed cholecalciferol (vitamin D3) 125 125 mcg PO DAILY 12/18/22 04/22/24 mcg (5,000 unit) tablet (Vitamin D3) clonidine HCl 0.2 mg tablet 0.2 mg PO BID 12/18/22 04/22/24 famotidine 20 mg tablet 20 mg PO DAILY 12/18/22 04/22/24 hydrochlorothiazide 25 mg tablet 25 mg PO DAILY 12/18/22 04/22/24 magnesium 200 mg tablet 200 mg PO DAILY 12/18/22 04/22/24 propranolol 120 mg capsule,24 120 mg PO DAILY 12/18/22 04/22/24 hr,extended release gabapentin 300 mg capsule 300 mg PO TID 04/22/24 04/22/24 omega-3 fatty acids-vitamin E 1 cap PO DAILY 04/22/24 04/22/24 1,000 mg capsule Previous Rx's Medication Instructions Recorded hydrocodone 5 mg-acetaminophen 325 1 tab PO Q6H PRN pain #20 tabs 12/18/22 mg tablet naproxen 500 mg tablet 500 mg PO BID PRN pain #30 tabs 04/15/24 oxycodone-acetaminophen 7.5 mg-325 1 tab PO Q6H PRN pain #10 tabs 04/21/24 mg tablet (Percocet) dexamethasone 4 mg tablet 4 mg PO Q8H #15 tabs 04/24/24 hydrochlorothiazide 25 mg tablet 25 mg PO BIDWMEAL #60 tabs 04/24/24 lactulose 20 gram/30 mL oral 30 g (45 mL) PO BID PRN 04/24/24 solution constipation #1,200 mL sennosides 8.6 mg-docusate sodium 1 tab-cap PO DAILY #20 tabs 04/24/24 50 mg tablet (Senna-S) Allergies Allergy/AdvReac Type Severity Reaction Status Date / Time No Known Allergies Allergy Verified 04/14/24 22:44 Review of Systems General: Reports: 10 or more systems reviewed and unremarkable except in HPI and below PFSH ED PFSH: Medical History Hypertensive urgency Left-sided low back pain with sciatica Acute low back pain Sciatica History of hypertension Surgical History No pertinent past surgical history Social History Smoking and tobacco/nicotine status: never used tobacco/nicotine Alcohol intake: never Substance/Drug Use: never Physical Exam Const: COMMON NORMALS: no acute distress, average body habitus, patient oriented x3, no limitations, healthy appearing, alert and well nourished HENMT: COMMON NORMALS: normocephalic, atraumatic, hearing grossly normal bilaterally, external ears normal, Normal external nose present and moist oral mucous membranes HEAD & SCALP: normocephalic and atraumatic NOSE: Normal external nose present EXTERNAL EAR: Yes external ears normal Neck/C-Spine: COMMON NORMALS: no JVD Chest: COMMONS NORMALS: normal inspection of the chest and normal palpation of entire chest wall Resp: COMMON NORMALS: normal respiratory effort, No retractions, No use of accessory muscles and clear to auscultation bilaterally AUSCULTATION: clear to auscultation bilaterally Cardio: COMMON NORMALS: no JVD, regular rate, regular rhythm, S1 normal heart sound present, S2 normal heart sound present, No gallops present (Cardio), No clicks present (Cardio), No murmurs present (Cardio) and No rub (Cardio) RATE: regular rate RHYTHM: regular rhythm HEART SOUNDS: S1 normal heart sound present and S2 normal heart sound present GI: COMMON NORMALS: Soft to palpation, non-tender, No hepatosplenomegaly present and no masses; negative for Normal to inspection, nondistended, normoactive bowel sounds present (Normal to inspection, nondistended, hypoactive bowel sounds in all 4 quadra) PALPATION: Yes Soft to palpation and Yes No hepatosplenomegaly present Neuro: COMMON NORMALS: patient oriented x3 SENSORIUM/ORIENTATION: Yes alert Course Vital Signs: Vital signs: Vital Signs Temperature 98.5 F 04/27/24 03:50 Pulse Rate 57 L 04/27/24 03:50 Respiratory Rate 16 04/27/24 03:50 Blood Pressure 129/89 04/27/24 03:50 Pulse Oximetry 95 04/27/24 03:50 MDM - Abdominal Pain Medical Decision Making X-ray was obtained which showed prominent constipation read by myself. Patient was given milk of molasses enema to results. Patient be discharged home. Patient should continue her lactulose, sennosides, and Colace. Medical Records I reviewed the patient's medical records. Lab Data I reviewed the patient's lab results. All radiology interpretation(s) finalized by discharge Discharge Plan Discharge Patient Disposition: Home Condition: Stable Prescriptions: No Action naproxen 500 mg tablet 500 mg PO BID PRN (Reason: pain) Qty: 30 0RF clonidine HCl 0.2 mg tablet 0.2 mg PO BID famotidine 20 mg Tablet 20 mg PO DAILY hydrochlorothiazide 25 mg tablet 25 mg PO DAILY propranolol 120 mg capsule,extended release 24 hr 120 mg PO DAILY magnesium 200 mg Tablet 200 mg PO DAILY cholecalciferol (vitamin D3) [Vitamin D3] 125 mcg (5,000 unit) Tablet 125 mcg PO DAILY hydrocodone-acetaminophen 5-325 mg tablet 1 tab PO Q6H PRN (Reason: pain) Qty: 20 0RF Percocet 7.5-325 mg tablet 1 tab PO Q6H PRN (Reason: pain) Qty: 10 0RF gabapentin 300 mg capsule 300 mg PO TID omega-3 fatty acids-vitamin E 1,000 mg Capsule 1 cap PO DAILY hydrochlorothiazide 25 mg Tablet 25 mg PO BIDWMEAL Qty: 60 0RF Rx Instructions: Hold if blood pressure below 130/60 Senna-S 8.6-50 mg tablet 1 tab-cap PO DAILY Qty: 20 0RF lactulose 20 gram/30 mL solution 30 g PO BID PRN (Reason: constipation) Qty: 1200 0RF dexamethasone 4 mg tablet 4 mg PO Q8H Qty: 15 0RF Discharge Orders: Discharge ED (Routine); Ordered 04/27/24 Ordered By: Donato Mullins Referrals: Morelia Iglesias NP [Primary Care Provider] - 1 week Patient Instructions: Constipation - Adult, Polyethylene Glycol 3350 (By mouth) (Miralax, Healthylax..., High Fiber Diet (ED), Fleet Enema (ED) Activity Restrictions/Additional Instructions: Please continue your senna S, lactulose, and Colace, you may consider adding in some MiraLAX, please eat a high-fiber diet and drink plenty of fluids. Please follow-up with your family practitioner the next 7 days for further evaluation and treatment as needed. Coding Level of Care Code ED Supervisor Telephone Clerks for Sara Henderson
--- NOTE | 2024-04-27 05:04 | PC.NURSE ---
Dr Mullins gave this nurse verbal instruction to give patient milk and molasses enema. Enema being instilled.
[2024-04-27 06:03] VITALS: BP 159/82; PULSE 63; O2SAT 95
[2024-04-27] MEDS: methylnaltrexone 12 /0.6 mL INJ 12 MG SUBCUT (06:35)
[2024-04-27 06:36] VITALS: BP 130/72; PULSE 52; O2SAT 93
[2024-04-27 07:15] VITALS: BP 126/66; PULSE 57; O2SAT 97
== END 2024-04-27 09:10 | disposition home or self-care (01) ==
PROVIDERS: Emergency Provider Emergency Medicine; PCP Nurse Practitioner Family
DX: K59.00 Constipation, unspecified (principal); I10 Essential (primary) hypertension
CPT/HCPCS: 74018; 96372; 99283; J2212

== ENCOUNTER 2024-05-03 14:19 | Inpatient (IN) | payer MEDICARE, BC, SELFPAY ==
[2024-05-03] VITALS (7 sets, daily range): BP systolic 122–169; BP diastolic 69–98; PULSE 55–61; RESP 16–20; TEMP 36.3–37; O2SAT 95–99; BMI 30.9
--- NOTE | 2024-05-03 15:57 | XRR_ITS ---
PROCEDURE INFORMATION: Exam: XR Abdomen Exam date and time: 05/03/2024 5:09 PM Age: 79 years old Clinical indication: Bloating and constipation TECHNIQUE: Imaging protocol: Radiologic exam of the abdomen. Views: Frontal supine view of the abdomen. 1 View. COMPARISON: CR (ABDOMEN, ) 04/27/2024 4:28 AM FINDINGS: Gastrointestinal tract: There is a large fecal burden. No bowel dilation. Bones/joints: Unremarkable. XR/XR KUB [id number] IMPRESSION: No acute findings. Large fecal burden.
[2024-05-03 17:28] LABS: Basophils % 0.3 %; Eosinophils # 0.2 10^3/uL (0.0-0.8); Eosinophils % 1.2 %; Hematocrit 40.3 % (36-47); Lymphocytes # 3.6 10^3/uL (0.8-4.8); Lymphocytes % 23.3 %; Mean Corpuscular HGB Conc 35.7 g/dL (30-55); Mean Corpuscular Hemoglobin 31.6 pg (27-33); Mean Corpuscular Volume 88.6 fl (85-98); Mean Platelet Volume 9.5 fL (7.4-10.4); Monocytes # 1.4 10^3/uL (0.2-0.9); Neutrophils # 10.15 10^3/uL (1.8-7.7); Neutrophils % 65.5 %; Nucleated Red Blood Cells % 0 %; Platelet Count 248 10^3/cmm (157-399); Red Blood Count 4.55 10^6/uL (3.85-5.65); White Blood Count 15.48 10^3/uL (3.29-11.43)
[2024-05-03 17:38] LABS: Alanine Aminotransferase 24 U/L (0-33); Albumin Level 3.9 g/dL (3.5-5.2); Alkaline Phosphatase 70 U/L (35-105); Aspartate Amino Transferase 18 U/L (0-32); Blood Urea Nitrogen 30 mg/dL (8-23); Calcium 8.9 mg/dL (8.5-10.5); Carbon Dioxide 31 mmol/L (22-29); Chloride 96 mmol/L (98-107); Creatinine Clr Calc Pharmacy 59.9086; Globulin 2.8 g/dL (1.3-4.6); Glucose 120 mg/dL (65-115); Osmolality Calculated 291 mOsm/kg (285-295); Sodium 137 mmol/L (136-145); Total Bilirubin 0.5 mg/dL (0.15-1.2); Total Protein 6.7 g/dL (6.6-8.7)
--- NOTE | 2024-05-03 17:41 | ED_ITS ---
Documented by User: Milton Cutler DO 05/04/24 05:11 HPI - Abdominal Pain 2 General: Chief Complaint: Abdominal Pain Stated Complaint: rectum pain, low back pain Time Seen by Provider: 05/03/24 17:00 History of Present Illness: 71-year-old female presents emergency ro om complaining of rectal pain as well as left leg sciatica pain. She was recently hospitalized for this On she was discharged on 04/24. During her hospitalization get MRI of her lumbar spine which showed compression fractures did not show any high-grade stenosis or central canal stenosis. There was some L5-S1 foraminal narrowing. There are also some mild endplate compression fractures at L1 with trace edema subacute to chronic. She is complaining difficulty with urination at times. Associated Symptoms: Reports constipation; Denies chills, dysuria and fever(s) Related Data Home Medications Medication Instructions Recorded Confirmed cholecalciferol (vitamin D3) 125 125 mcg PO DAILY 12/18/22 05/03/24 mcg (5,000 unit) tablet (Vitamin D3) clonidine HCl 0.2 mg tablet 0.2 mg PO BID 12/18/22 05/03/24 famotidine 20 mg tablet 20 mg PO BEDTIME 12/18/22 05/03/24 hydrochlorothiazide 25 mg tablet 25 mg PO DAILY 12/18/22 05/03/24 magnesium 200 mg tablet 200 mg PO DAILY 12/18/22 05/03/24 propranolol 120 mg capsule,24 120 mg PO DAILY 12/18/22 05/03/24 hr,extended release omega-3 fatty acids-vitamin E 1 cap PO DAILY 04/22/24 05/03/24 1,000 mg capsule Previous Rx's Medication Instructions Recorded naproxen 500 mg tablet 500 mg PO BID PRN pain #30 tabs 04/15/24 Allergies Allergy/AdvReac Type Severity Reaction Status Date / Time No Known Allergies Allergy Verified 04/14/24 22:44 Review of Systems 2 Const: Denies: fever(s) or chills Card: Denies: chest pain Resp: Denies: dyspnea GI: Reports: constipation and rectal pain; Denies: abdominal pain : Denies: dysuria, urinary frequency or urinary urgency Musc: Denies: neck pain or back pain Skin/Breast: Denies: rash PFSH ED 2 PFSH: Medical History Hypertensive urgency Left-sided low back pain with sciatica Acute low back pain Sciatica History of hypertension Surgical History No pertinent past surgical history Social History Smoking and tobacco/nicotine status: never used tobacco/nicotine Alcohol intake: never Substance/Drug Use: never Physical Exam 2 Const: COMMON NORMALS: no acute distress GENERAL APPEARANCE: cooperative and comfortable ORIENTATION/CONSCIOUSNESS: Yes awake, Yes oriented to person, Yes oriented to place and Yes oriented to time HENMT: COMMON NORMALS: normocephalic, atraumatic and hearing grossly normal bilaterally HEAD & SCALP: normocephalic and atraumatic Resp: COMMON NORMALS: normal respiratory effort, No retractions, No use of accessory muscles and clear to auscultation bilaterally AUSCULTATION: clear to auscultation bilaterally Cardio: COMMON NORMALS: regular rate, regular rhythm and No murmurs present (Cardio) RATE: regular rate RHYTHM: regular rhythm GI: COMMON NORMALS: Soft to palpation and No hepatosplenomegaly present A USCULTATION: Yes normoactive bowel sounds PALPATION: Yes Soft to palpation, No Tenderness to palpation present (GI), No Guarding due to palpation present (GI) and Yes No hepatosplenomegaly present Extremity: COMMON NORMALS: normal to inspection, capillary refill normal, no clubbing, cyanosis or edema, no calf tenderness and no pedal edema Neuro: SENSORIUM/ORIENTATION: Yes oriented to person, Yes oriented to place and Yes oriented to time OTHER: Straight leg raising positive on the left. Sensation lower extremities normal Skin: COMMON NORMALS: no rashes or lesions noted GENERAL SKIN EXAM: no rashes or lesions noted Course 2 Vital Signs: Vital signs: Vital Signs Temperature 97.7 F 05/04/24 04:00 Pulse Rate 60 05/04/24 04:00 Respiratory Rate 17 05/04/24 04:00 Blood Pressure 138/76 05/04/24 04:00 Pulse Oximetry 97 05/04/24 04:00 Oxygen Delivery Me thod Room Air 05/04/24 04:00 MDM - Abdominal Pain Medical Decision Making Care signed out to Dr. Khan at change of shift. See final notes for diagnosis and disposition. Patient care transitioned to [place] at shift change. CT scan was pending. Lab Review: Laboratory results were reviewed and interpreted by myself the emergency room physician. Leukocytosis with white count of 16. Hemoglobin stable at 14. Potassium mildly low at 3. BUN has continued to climb and is now at 30 which would indicate worsening dehydration. Urinalysis is quite concentrated at 1.035 which would also indicate dehydration. She also has mild urinary tract infection with 11-20 whites. Rocephin has been being given. Fluids being given. CT of the abdomen pelvis shows constipation and probable stercoral colitis. This was reviewed and interpreted by myself the emergency room physician. I also reviewed the radiology report. Consultation: I spoke with Dr. Scott who is on-call for general surgery about the findings of the CT. He recommends disimpaction and treatment of her constipation. Consultation: I spoke with Dr. Asher who is on-call for the hospitalist service and he agrees to observation for fluids and continued treatment of her constipation. I reviewed the patient's medical record. Procedure: Manual disimpaction. I performed a manual disimpaction with some minimal results. Was not well-tolerated secondary to pain likely secondary to the starcoral colitis. Reexamination: Patient has remained stable. She has no increased work of breathing. She has had no nausea or vomiting. No altered mental status. Family is concerned because she lives at home alone and she is very weak. The hope she can be admitted. Given her weakness and lack of results thus far with treatment of her constipation and her dehydration I think observation for fluids is not a bad idea. Assessment and plan: Constipation Dehydration Stercoral colitis Fecal impaction Generalized weakness -I discussed the patient with the hospitalist on-call who is admitting the patient. - Discussed findings and plan with patient. Answered any questions. - All laboratory values were reviewed and interpreted personally by myself, the ER physician - All imaging was reviewed and interpreted personally by myself, the ER physician. - Evaluation and treatment of this problem were appropriate in the emergency setting Medical Records I reviewed the patient's medical records. Lab Data I reviewed the patient's lab results. 05/03/24 17:13 05/03/24 17:13 Labs/Radiology: Radiology Impressions KUB X-Ray 05/03/24 15:57 IMPRESSION: No acute findings. Large fecal burden. Abdomen/Pelvis CT 05/03/24 17:42 IMPRESSION: 1. Constipation. 2. Nonspecific edema in the perirectal soft tissues within the presacral space. Pathology such as stercoral colitis not excluded. COMMENTS: Consistent with the [employer]'s Incidental Findings Committee white paper (J Am Aliza Radiol 2018): Any incidental renal lesion less than 1 cm or classified as too small to characterize, or any incidental cystic renal lesion characterized as simple-appearing, is likely benign. No follow-up imaging is recommended for these lesions per consensus recommendations based on imaging criteria. Laboratory Results WBC 15.48 10^3/uL (3.29-11.43) H 05/03/24 17:13 RBC 4.55 10^6/uL (3.85-5.65) 05/03/24 17:13 Hgb 14.40 g/dL (11.27-16.99) 05/03/24 17:13 Hct 40.3 % (36-47) 05/03/24 17:13 MCV 88.6 fl (85-98) 05/03/24 17:13 MCH 31.6 pg (27-33) 05/03/24 17:13 MCHC 35.7 g/dL (30-55) 05/03/24 17:13 RDW 13.0 % (12.1-15.1) 05/03/24 17:13 Plt Count 248 10^3/cmm (157-399) 05/03/24 17:13 MPV 9.5 fL (7.4-10.4) 05/03/24 17:13 Neut % (Auto) 65.5 % 05/03/24 17:13 Lymph % (Auto) 23.3 % 05/03/24 17:13 [place] % (Auto) 9.0 % 05/03/24 17:13 Eos % (Auto) 1.2 % 05/03/24 17:13 Baso % (Auto) 0.3 % 05/03/24 17:13 Neut # (Auto) 10.15 10^3/uL (1.8-7.7) H 05/03/24 17:13 Lymph # (Auto) 3.6 10^3/uL (0.8-4.8) 05/03/24 17:13 [place] # (Auto) 1.4 10^3/uL (0.2-0.9) H 05/03/24 17:13 Eos # (Auto) 0.2 10^3/uL (0.0-0.8) 05/03/24 17:13 Baso # (Auto) 0.0 10^3/uL (0.0-0.1) 05/03/24 17:13 Nucleated RBC % (auto) 0 % 05/03/24 17:13 Nucleated RBCs # 0.0 /100WBC 05/03/24 17:13 Sodium 137 mmol/L (136-145) 05/03/24 17:13 Potassium 3.0 mmol/L (3.5-5.1) L 05/03/24 17:13 Chloride 96 mmol/L (98-107) L 05/03/24 17:13 Carbon Dioxide 31 mmol/L (22-29) H 05/03/24 17:13 Anion Gap 13.0 (5-19) 05/03/24 17:13 BUN 30 mg/dL (8-23) H 05/03/24 17:13 Creatinine 0.8 mg/dL (0.5-0.9) 05/03/24 17:13 GFR Calculation Not Reportable 05/03/24 17:13 Glucose 120 mg/dL (65-115) H 05/03/24 17:13 Calculated Osmolality 291 mOsm/kg (285-295) 05/03/24 17:13 Calcium 8.9 mg/dL (8.5-10.5) 05/03/24 17:13 Total Bilirubin 0.5 mg/dL (0.15-1.2) 05/03/24 17:13 AST 18 U/L (0-32) 05/03/24 17:13 ALT 24 U/L (0-33) 05/03/24 17:13 Alkaline Phosphatase 70 U/L (35-105) 05/03/24 17:13 Total Protein 6.7 g/dL (6.6-8.7) 05/03/24 17:13 Albumin 3.9 g/dL (3.5-5.2) 05/03/24 17:13 Globulin 2.8 g/dL (1.3-4.6) 05/03/24 17:13 Urine Color Dark yellow (Yellow) A 05/03/24 17:58 Urine Appearance Cloudy (CLEAR) A 05/03/24 17:58 Urine pH 6.0 (5-7) 05/03/24 17:58 Ur Specific [place] 1.035 (1.005-1.030) H 05/03/24 17:58 Urine Protein 1+ (Negative) A 05/03/24 17:58 Urine Glucose (UA) Negative (Normal) 05/03/24 17:58 Urine Ketones 1+ (Negative) H 05/03/24 17:58 Urine Blood Negative (Negative) 05/03/24 17:58 Urine Nitrate Negative (Negative) 05/03/24 17:58 Urine Bilirubin Negative (Negative) 05/03/24 17:58 Urine Urobilinogen 1.0 mg/dL (Negative) 05/03/24 17:58 Ur Leukocyte Esterase 1+ (Negative) A 05/03/24 17:58 Urine RBC 6-10 /hpf (0-2) 05/03/24 17:58 Urine WBC 11-20 /hpf (0-5) H 05/03/24 17:58 Ur Squamous Epith Cells 51-100 /hpf (0-5) 05/03/24 17:58 Amorphous Sediment Not Reportable 05/03/24 17:58 Urine Bacteria 1+ /hpf (NONE) H 05/03/24 17:58 Hyaline Casts 25.63 /lpf 05/03/24 17:58 Discharge Plan Discharge Patient Disposition: Placed in Observation Admit Provider: Bart Asher Clinical Impression: Stercoral colitis, Constipation, Dehydration, Sciatica Coding Level of Care Code ED Poultry Scientist for Chg Fwd Documented by User: Nati Khan MD 05/03/24 21:38 HPI - Abdominal Pain 2 General: Chief Complaint: Abdominal Pain Stated Complaint: rectum pain, low back pain Time Seen by Provider: 05/03/24 17:00 Related Data Home Medications Medication Instructions Recorded Confirmed cholecalciferol (vitamin D3) 125 125 mcg PO DAILY 12/18/22 05/03/24 mcg (5,000 unit) tablet (Vitamin D3) clonidine HCl 0.2 mg tablet 0.2 mg PO BID 12/18/22 05/03/24 famotidine 20 mg tablet 20 mg PO BEDTIME 12/18/22 05/03/24 hydrochlorothiazide 25 mg tablet 25 mg PO DAILY 12/18/22 05/03/24 magnesium 200 mg tablet 200 mg PO DAILY 12/18/22 05/03/24 propranolol 120 mg capsule,24 120 mg PO DAILY 12/18/22 05/03/24 hr,extended release omega-3 fatty acids-vitamin E 1 cap PO DAILY 04/22/24 05/03/24 1,000 mg capsule Previous Rx's Medication Instructions Recorded naproxen 500 mg tablet 500 mg PO BID PRN pain #30 tabs 04/15/24 Allergies Allergy/AdvReac Type Severity Reaction Status Date / Time No Known Allergies Allergy Verified 04/14/24 22:44 PFSH ED 2 PFSH: Medical History Hypertensive urgency Left-sided low back pain with sciatica Acute low back pain Sciatica History of hypertension Surgical History No pertinent past surgical history Social History Smoking and tobacco/nicotine status: never used tobacco/nicotine Alcohol intake: never Substance/Drug Use: never Course 2 Vital Signs: Vital signs: Vital Signs Temperature 97.7 F 05/04/24 04:00 Pulse Rate 60 05/04/24 04:00 Respiratory Rate 17 05/04/24 04:00 Blood Pressure 138/76 05/04/24 04:00 Pulse Oximetry 97 05/04/24 04:00 Oxygen Delivery [place] thod Room Air 05/04/24 04:00 MDM - Abdominal Pain Medical Decision Making Patient care transitioned to [place] at shift change. CT scan was pending. Lab Review: Laboratory results were reviewed and interpreted by myself the emergency room physician. Leukocytosis with white count of 16. Hemoglobin stable at 14. Potassium mildly low at 3. BUN has continued to climb and is now at 30 which would indicate worsening dehydration. Urinalysis is quite concentrated at 1.035 which would also indicate dehydration. She also has mild urinary tract infection with 11-20 whites. Rocephin has been being given. Fluids being given. CT of the abdomen pelvis shows constipation and probable stercoral colitis. This was reviewed and interpreted by myself the emergency room physician. I also reviewed the radiology report. Consultation: I spoke with Dr. Scott who is on-call for general surgery about the findings of the CT. He recommends disimpaction and treatment of her constipation. Consultation: I spoke with Dr. Asher who is on-call for the hospitalist service and he agrees to observation for fluids and continued treatment of her constipation. I reviewed the patient's medical record. Procedure: Manual disimpaction. I performed a manual disimpaction with some minimal results. Was not well-tolerated secondary to pain likely secondary to the starcoral colitis. Reexamination: Patient has remained stable. She has no increased work of breathing. She has had no nausea or vomiting. No altered mental status. Family is concerned because she lives at home alone and she is very weak. The hope she can be admitted. Given her weakness and lack of results thus far with treatment of her constipation and her dehydration I think observation for fluids is not a bad idea. Assessment and plan: Constipation Dehydration Stercoral colitis Fecal impaction Generalized weakness -I discussed the patient with the hospitalist on-call who is admitting the patient. - Discussed findings and plan with patient. Answered any questions. - All laboratory values were reviewed and interpreted personally by myself, the ER physician - All imaging was reviewed and interpreted personally by myself, the ER physician. - Evaluation and treatment of this problem were appropriate in the emergency setting Lab Data 05/03/24 17:13 05/03/24 17:13 Labs/Radiology: Radiology Impressions KUB X-Ray 05/03/24 15:57 IMPRESSION: No acute findings. Large fecal burden. Abdomen/Pelvis CT 05/03/24 17:42 IMPRESSION: 1. Constipation. 2. Nonspecific edema in the perirectal soft tissues within the presacral space. Pathology such as stercoral colitis not excluded. COMMENTS: Consistent with the [employer]'s Incidental Findings Committee white paper (J Am Aliza Radiol 2018): Any incidental renal lesion less than 1 cm or classified as too small to characterize, or any incidental cystic renal lesion characterized as simple-appearing, is likely benign. No follow-up imaging is recommended for these lesions per consensus recommendations based on imaging criteria. Laboratory Results WBC 15.48 10^3/uL (3.29-11.43) H 05/03/24 17:13 RBC 4.55 10^6/uL (3.85-5.65) 05/03/24 17:13 Hgb 14.40 g/dL (11.27-16.99) 05/03/24 17:13 Hct 40.3 % (36-47) 05/03/24 17:13 MCV 88.6 fl (85-98) 05/03/24 17:13 MCH 31.6 pg (27-33) 05/03/24 17:13 MCHC 35.7 g/dL (30-55) 05/03/24 17:13 RDW 13.0 % (12.1-15.1) 05/03/24 17:13 Plt Count 248 10^3/cmm (157-399) 05/03/24 17:13 MPV 9.5 fL (7.4-10.4) 05/03/24 17:13 Neut % (Auto) 65.5 % 05/03/24 17:13 Lymph % (Auto) 23.3 % 05/03/24 17:13 [place] % (Auto) 9.0 % 05/03/24 17:13 Eos % (Auto) 1.2 % 05/03/24 17:13 Baso % (Auto) 0.3 % 05/03/24 17:13 Neut # (Auto) 10.15 10^3/uL (1.8-7.7) H 05/03/24 17:13 Lymph # (Auto) 3.6 10^3/uL (0.8-4.8) 05/03/24 17:13 [place] # (Auto) 1.4 10^3/uL (0.2-0.9) H 05/03/24 17:13 Eos # (Auto) 0.2 10^3/uL (0.0-0.8) 05/03/24 17:13 Baso # (Auto) 0.0 10^3/uL (0.0-0.1) 05/03/24 17:13 Nucleated RBC % (auto) 0 % 05/03/24 17:13 Nucleated RBCs # 0.0 /100WBC 05/03/24 17:13 Sodium 137 mmol/L (136-145) 05/03/24 17:13 Potassium 3.0 mmol/L (3.5-5.1) L 05/03/24 17:13 Chloride 96 mmol/L (98-107) L 05/03/24 17:13 Carbon Dioxide 31 mmol/L (22-29) H 05/03/24 17:13 Anion Gap 13.0 (5-19) 05/03/24 17:13 BUN 30 mg/dL (8-23) H 05/03/24 17:13 Creatinine 0.8 mg/dL (0.5-0.9) 05/03/24 17:13 GFR Calculation Not Reportable 05/03/24 17:13 Glucose 120 mg/dL (65-115) H 05/03/24 17:13 Calculated Osmolality 291 mOsm/kg (285-295) 05/03/24 17:13 Calcium 8.9 mg/dL (8.5-10.5) 05/03/24 17:13 Total Bilirubin 0.5 mg/dL (0.15-1.2) 05/03/24 17:13 AST 18 U/L (0-32) 05/03/24 17:13 ALT 24 U/L (0-33) 05/03/24 17:13 Alkaline Phosphatase 70 U/L (35-105) 05/03/24 17:13 Total Protein 6.7 g/dL (6.6-8.7) 05/03/24 17:13 Albumin 3.9 g/dL (3.5-5.2) 05/03/24 17:13 Globulin 2.8 g/dL (1.3-4.6) 05/03/24 17:13 Urine Color Dark yellow (Yellow) A 05/03/24 17:58 Urine Appearance Cloudy (CLEAR) A 05/03/24 17:58 Urine pH 6.0 (5-7) 05/03/24 17:58 Ur Specific [place] 1.035 (1.005-1.030) H 05/03/24 17:58 Urine Protein 1+ (Negative) A 05/03/24 17:58 Urine Glucose (UA) Negative (Normal) 05/03/24 17:58 Urine Ketones 1+ (Negative) H 05/03/24 17:58 Urine Blood Negative (Negative) 05/03/24 17:58 Urine Nitrate Negative (Negative) 05/03/24 17:58 Urine Bilirubin Negative (Negative) 05/03/24 17:58 Urine Urobilinogen 1.0 mg/dL (Negative) 05/03/24 17:58 Ur Leukocyte Esterase 1+ (Negative) A 05/03/24 17:58 Urine RBC 6-10 /hpf (0-2) 05/03/24 17:58 Urine WBC 11-20 /hpf (0-5) H 05/03/24 17:58 Ur Squamous Epith Cells 51-100 /hpf (0-5) 05/03/24 17:58 Amorphous Sediment Not Reportable 05/03/24 17:58 Urine Bacteria 1+ /hpf (NONE) H 05/03/24 17:58 Hyaline Casts 25.63 /lpf 05/03/24 17:58 All radiology interpretation(s) finalized by discharge Discharge Plan Discharge Patient Disposition: Placed in Observation Admit Provider: Bart Asher Clinical Impression: Stercoral colitis, Constipation, Dehydration, Sciatica Coding Level of Care Code ED Poultry Scientist for Sara Henderson
--- NOTE | 2024-05-03 17:42 | CTR_ITS ---
PROCEDURE INFORMATION: Exam: CT Abdomen And Pelvis With Contrast Exam date and time: 05/03/2024 6:24 PM Age: 79 years old Clinical indication: Abdominal pain; Additional info: Abd pain TECHNIQUE: Imaging protocol: Computed tomography of the abdomen and pelvis with contrast. Radiation optimization: All CT scans at this facility use at least one of these dose optimization techniques: automated exposure control; mA and/or kV adjustment per patient size (includes targeted exams where dose is matched to clinical indication); or iterative reconstruction. Contrast material: OMNI 350; Contrast volume: 100 ml; Contrast route: INTRAVENOUS (IV); COMPARISON: CR (ABDOMEN, ) 05/03/2024 5:09 PM RADIATION DOSE METRICS: Total DLP (mGy-cm): 1066 FINDINGS: Diaphragm: Small hiatal hernia. Liver: Normal. No mass. Gallbladder and biliary ducts: Cholelithiasis. Negative for gallbladder wall thickening. Negative for biliary system dilation. Pancreas: Normal. No ductal dilation. Spleen: Normal. No splenomegaly. Adrenal glands: Normal. No mass. Kidneys and ureters: A few tiny simple bilateral renal cortical cysts are present. Negative for perinephric inflammation. Negative for urolithiasis. Negative for hydronephrosis. Stomach and bowel: Large colonic fecal volume. Mild distension of the rectum measuring 6.7 cm. Perirectal edema/stranding posteriorly in the presacral space. Negative for bowel obstruction or perforation. Appendix: No evidence of appendicitis. Intraperitoneal space: Unremarkable. No free air. No significant fluid collection. Vasculature: Unremarkable. No abdominal aortic aneurysm. Lymph nodes: Unremarkable. No enlarged lymph nodes. Urinary bladder: Unremarkable as visualized. Reproductive: Hysterectomy. Bones/joints: Unremarkable. No acute fracture. Soft tissues: Unremarkable. CT/CT abdomen pelvis w con* [id number] IMPRESSION: 1. Constipation. 2. Nonspecific edema in the perirectal soft tissues within the presacral space. Pathology such as stercoral colitis not excluded. COMMENTS: Consistent with the [employer]'s Incidental Findings Committee white paper (J Am Aliza Radiol 2018): Any incidental renal lesion less than 1 cm or classified as too small to characterize, or any incidental cystic renal lesion characterized as simple-appearing, is likely benign. No follow-up imaging is recommended for these lesions per consensus recommendations based on imaging criteria.
[2024-05-03 18:18] LABS: Bilirubin Urine Negative (Negative); Blood Urine Negative (Negative); Glucose Urine UA Negative (Normal); Ketones Urine 1+ (Negative); Leukocyte Esterase Urine 1+ (Negative); Nitrate Urine Negative (Negative); Protein Urine 1+ (Negative); Urine Appearance Cloudy (CLEAR); Urine Color Dark Yellow (Yellow)
[2024-05-03 18:20] LABS: Add Urine Microscopic? YES; Bacteria Urine 1+ /hpf; Hyaline Casts Urine 25.63 /lpf; Squamous Epithelial Cell Urine 51-100 /hpf (0-5)
[2024-05-03 18:34] LABS: Specific Gravity, Urine 1.035 (1.005-1.030)
[2024-05-03] MEDS: iohexol 350 mg/mL 500 mL Btl (per mL) IV (18:35)
[2024-05-03 18:36] LABS: Add Urine Culture? No
[2024-05-03] MEDS: cefTRIAXone 1,000 mg SDV 1000 MG IVP (19:54)
[2024-05-03] MEDS: mineral oil ENEMA 133 mL PR (20:06)
[2024-05-03] MEDS: peg /e-lyte soln 4,000 mL Btl 4000 ML PO (20:10)
[2024-05-03] MEDS: sodium chloride 0.9% 1,000 ML 999 ML IV (20:48)
[2024-05-03] MEDS: HYDROmorphone 1 mg/mL INJ 1 mL IVP (20:49)
--- NOTE | 2024-05-03 23:32 | P.HP_ITS ---
Providers/Chief Complaint 2 Admitting Physician: Bart Asher Primary Care Provider: Morelia Iglesias NP Chief Complaint: rectum pain, low back pain History of Present Illness Very pleasant 79-year-old lady with history of lumbar spine without high-grade spinal stenosis on MRI 04/24, but with neuroforaminal narrowing with symptomatic radiculopathy which she has been having a lot of trouble with making her have significant difficulty ambulating, has been having it treated with hydrocodone. Presents due to lower abdominal pain, rectum pain, difficulty with expelling urine. She is afebrile, but with leukocytosis 15.5, potassium 3, BUN 30, creatinine 0.8, glucose 120, UA with dark yellow cloudy urine with leukocyte esterase and 11-20 WBC, 1+ bacteria and hyaline casts. CT abdomen pelvis with constipation, nonspecific edema and perirectal soft tissues within the presacral space. Pathology such as stercoral colitis not excluded. Review of Systems 2 Const: Denies: fever(s), chills, body aches or malaise ENMT: Denies: throat pain, oral sores or ear or mastoid pain Card: Denies: chest pain, edema, pre-syncope or dyspnea on exertion Resp: Denies: dyspnea, productive cough, change in phlegm color or hemoptysis GI: Reports: abdominal pain and constipation; Denies: nausea, vomiting, diarrhea, hematochezia or melena : Reports: difficulty voiding; Denies: flank pain, urinary frequency or hematuria Musc: Reports: other (Sciatica); Denies: joint swelling or joint redness Skin/Breast: Denies: rash or new lesions Neuro: Denies: headache(s) or dizziness Medications/Allergies Home Medications Medication Instructions Recorded Confirmed Last Taken Type cholecalciferol (vitamin D3) 125 125 mcg PO DAILY 12/18/22 05/03/24 04/21/24 History mcg (5,000 unit) tablet (Vitamin D3) clonidine HCl 0.2 mg tablet 0.2 mg PO BID 12/18/22 05/03/24 05/03/24 09:00 History famotidine 20 mg tablet 20 mg PO BEDTIME 12/18/22 05/03/24 05/02/24 20:00 History hydrochlorothiazide 25 mg tablet 25 mg PO DAILY 12/18/22 05/03/2424 09:00 History magnesium 200 mg tablet 200 mg PO DAILY 12/18/22 05/03/24 04/18/24 History propranolol 120 mg capsule,24 120 mg PO DAILY 12/18/22 05/03/24 05/03/24 09:00 History hr,extended release naproxen 500 mg tablet 500 mg PO BID PRN pain #30 tabs 04/15/24 05/03/24 05/02/24 20:00 Rx omega-3 fatty acids-vitamin E 1 cap PO DAILY 04/22/24 05/03/24 04/21/24 History 1,000 mg capsule Allergies Allergy/AdvReac Type Severity Reaction Status Date / Time No Known Allergies Allergy Verified 04/14/24 22:44 PFSH Acute 2 PFSH: Medical History Hypertensive urgency Left-sided low back pain with sciatica Acute low back pain Sciatica History of hypertension Surgical History No pertinent past surgical history Social History Smoking and tobacco/nicotine status: never used tobacco/nicotine Alcohol intake: never Substance/Drug Use: never Vitals/I&O/Wt Last Vital Signs Temp 98.6 F 05/03/24 22:12 Pulse 55 L 05/03/24 22:12 Resp 17 05/03/24 22:12 BP 153/69 05/03/24 22:12 Pulse Ox 97 05/03/24 22:12 O2 Del Method Room Air 05/03/24 22:12 Weight last 48 hrs Weight 96.388 kg Weight 81.647 kg Physical Exam 2 Const: COMMON NORMALS: patient oriented x3 and alert GENERAL APPEARANCE: c ooperative ORIENTATION/CONSCIOUSNESS: Yes awake HENMT: COMMON NORMALS: oropharynx normal Neck/C-Spine: COMMON NORMALS: no JVD Resp: COMMON NORMALS: normal respiratory effort and clear to auscultation bilaterally AUSCULTATION: clear to auscultation bilaterally Cardio: COMMON NORMALS: no JVD, regular rhythm, S1 normal heart sound present, S2 normal heart sound present and No murmurs present (Cardio) RHYTHM: regular rhythm HEART SOUNDS: S1 normal heart sound present and S2 normal heart sound present GI: COMMON NORMALS: Normal to inspection, nondistended, normoactive bowel sounds present, Soft to palpation and non-tender PALPATION: Yes Soft to palpation Extremity: COMMON NORMALS: no joint enlargement and no pedal edema Neuro: COMMON NORMALS: patient oriented x3 and moves all extremities S ENSORIUM/ORIENTATION: Yes alert Skin: COMMON NORMALS: no rashes or lesions noted GENERAL SKIN EXAM: no rashes or lesions noted Data 05/03/24 17:13 05/03/24 17:13 A&P Assessment and plan (1) Stercoral colitis: Abdominal pain, obstipation, with major complication of difficulty voiding bladder, UTI, dehydration. Reviewed vitals, CBC, CMP, UA, chest x-ray, CT abdomen pelvis, ED provider note, discussed with ED provider. Noted constipation, nonspecific edema in the perirectal soft tissues within the presacral space. Leukocytosis 15.4. Suspect severe constipation/obstipation secondary to opioid which she has been using for treatment of her symptomatic radiculopathy. Also with decreased ambulation due to the same. Underwent partial disimpaction in ER, started on GoLytely. Continue. Dulcolax positive. Consider enemas. Discussed with her for now empiric antibiotic treatment as well, received ceftriaxone for UTI, added Flagyl, monitor for risk of QT prolongation, obtain EKG. Monitor for risk of C. difficile colitis. Reassess blood counts, monitor vitals for development of sepsis. No eructation or vomiting at current time. So far without sign of obstruction. Bowel sound present. Continue cardiac diet for now. IV hydration for dehydration. Monitor for risk of fluid overload. Hold off opioids. Hold off diuretics. (2) Constipation: Will need ongoing bowel regimen going forward to avoid recurrence. Minimize opioids. Avoid dehydration, caution with diuretics. (3) Dehydration: Dehydrated, poor oral intake. BUN 30, serum bicarbonate 31. With concentrated urine with hyaline casts. (4) Sciatica: Hold opioids. Continue acetaminophen, gabapentin, naproxen as needed, add lidocaine patch. (5) Urine retention: Has had difficulties voiding with severe constipation. On review of MRI no sign of cauda equina or severe spinal stenosis. Bladder scan is requested, please follow-up. Continue to treat constipation, consider Dominguez if significant retention or further difficulties. Additionally with UTI. Treat as below. (6) UTI (urinary tract infection): 11-20 WBC in urine, has had some difficulties voiding likely secondary constipation but appears also possible UTI. Received ceftriaxone, continue. Follow-up urine culture. Plan HTN: Continue clonidine, propranolol, diuretic for now with dehydration. Attestations 2 Medical Necessity Statement*: Place in observation for additional assessment and management of stercoral colitis complication of obstipation secondary to opioids, dehydration with symptomatic radiculopathy, hypertension on diuretic treatment, complicated also by urine retention and UTI. and High MDM includes amount and/or complexity of data reviewed/ordered [ previous or external records, resulted lab(s)/test(s), ordered lab(s)/test(s) and other healthcare professional discussion] and described risk of complication, morbidity or mortality of management as documented Diagnoses Stercoral colitis K52.89 Constipation K59.00 Dehydration E86.0 Sciatica M54.30 Urine retention R33.9 UTI (urinary tract infection) N39.0
[2024-05-04] VITALS (8 sets, daily range): BP systolic 110–153; BP diastolic 67–88; PULSE 55–77; RESP 15–21; TEMP 36.5–37; O2SAT 93–97
[2024-05-04] MEDS: lactated ringers 1,000 ML 75 ML IV ×2 (00:22→17:44)
[2024-05-04] MEDS: bisacodyl 10 mg Supp PR (00:25)
[2024-05-04] MEDS: metroNIDAZOLE IV 500 MG/100 ML PREMIX 100 MG IV ×4 (00:32→23:48)
[2024-05-04] MEDS: enoxaparin 40 mg/0.4 mL Syringe SUBCUT (00:32)
--- NOTE | 2024-05-04 04:37 | ECG_ITS ---
[facility] Test Date: 2024-05-04 Pat Name: Leena Bowser Department: Room: 252 Gender: Female Jinriksha Driver: : 1945 Requested By: Bart Asher Order Number: [id number] Reading MD: Janna Talbert M.D. Measurements Intervals [place] Rate: 67 P: 51 DC: 174 QRS: -2 QRSD: 110 T: 42 QT: 414 QTc: 440 Interpretive Statements SINUS RHYTHM NONSPECIFIC ST & T-WAVE ABNORMALITY Compared to ECG 12/18/2022 17:41:12 T-wave abnormality now present Electronically Signed On 05-04-2024 20:29:21 CDT by Janna Talbert M.D. [id number]
[2024-05-04 07:05] LABS: Basophils % 0.1 %; Eosinophils % 0.2 %; Hematocrit 36.6 % (36-47); Lymphocytes # 1.9 10^3/uL (0.8-4.8); Lymphocytes % 13.4 %; Mean Corpuscular HGB Conc 34.4 g/dL (30-55); Mean Corpuscular Hemoglobin 31.3 pg (27-33); Mean Corpuscular Volume 90.8 fl (85-98); Mean Platelet Volume 9.6 fL (7.4-10.4); Monocytes # 1.1 10^3/uL (0.2-0.9); Monocytes % 7.8 %; Neutrophils # 11.04 10^3/uL (1.8-7.7); Nucleated Red Blood Cells % 0 %; Platelet Count 215 10^3/cmm (157-399); Red Blood Count 4.03 10^6/uL (3.85-5.65); White Blood Count 14.15 10^3/uL (3.29-11.43)
[2024-05-04] MEDS: cloNIDine 0.1 mg Tablet 0.2 MG PO ×2 (08:06→17:43)
[2024-05-04] MEDS: magnesium oxide 400 mg tablet 200 MG PO (08:06)
[2024-05-04] MEDS: pantoprazole 40 mg SDV IVP ×2 (08:07→20:14)
[2024-05-04] MEDS: cefTRIAXone 1,000 mg SDV 1000 MG IVP (08:08)
--- NOTE | 2024-05-04 08:52 | XR_ITS ---
WS: [id number] KUB, AP view, 05/04/2024 Clinical Data: abdominal pain Comparison: KUB, 05/03/2024 Findings: No abnormal intraabdominal masses or calcifications are seen. There is no dilatated small bowel or ev idence of obstruction. Fecal material has diminished in the colon. There is contrast in the bladder from a CT abdomen and pe lvis. There is air in the small bowel and colon. XR/XR KUB portable [id number] Impression: Mild generalized ileus with decrease in fecal material.
--- NOTE | 2024-05-04 09:51 | PC.CHAP ---
Pastoral Care Encounter/Spiritual Assessment Type of Contact [] Declined travel professional visit [] Patient/Family/Request visit [] Outpatient visit [] Follow-up visit [] Physician referral [] Code/Alert [x] Routine visit [] Staff referral [] Actively dying [] Patient sleeping [] Family support [] [] Out of room [] Palliative care [] [] Receiving care in room [] Pre-surgical visit [] Trauma [] Long length of stay [] ICU visit [] Other: Relational/Emotional Strength [x] Patient feels connected with others/family/visitors/staff [] Distress [] Loneliness/isolation [] Abandonment Spirituality of Patient [x] Person of Rufina [] Attends Tenriism of their Rufina [x] Believes in Prayer [] Reads Bible or Denominational materials [] There are Spiritual issues to be addressed Hoist Operator Interventions [x] Prayer [x] Active listening [x] Non-anxious presence [] Spiritual/emotional support [] Crisis/trauma care [] Spiritual counseling [] Bereavement support [] Provided bereavement packet [] Provided Bible/devotional materials [] Provided toy/stuffed animal, coloring book to patient or family member [] Provided Communion [] Anointing/[place] [] Salvation [] Completed spiritual assessment [] Other: Impact on Illness or Injury [] Angry [] Fearful [] Anxious [] Often cries [] Exhaustion [] Unable to work [] Unable to attend amish [] Unable to walk/stand [] Unable to read [] Unable to drive [] Unable to eat/drink [] Unable to sleep [] Unable to be with family [] Patient intubated [] Other: Summary prayer + 1 Good spirits Time spent with patient 15min
--- NOTE | 2024-05-04 11:04 | USCV_ITS ---
Leena Bowser Age: 79 Gender: F : 1945 Exam Date: 05/04/2024 11:41 Ordering Phys: Ludin Vyas MD Technologist: CT Exam Location: [facility] – [place]_ Indication: PROCEDURES: Venous duplex imaging was performed in bilateral lower extremities. The venous duplex Doppler examination of both lower extremities was performed in the standard fashion. Bilaterally, the common femoral, superficial femoral, profunda femoral, popliteal, posterior tibial, greater saphenous veins, and the peroneal trunk were identified and interrogated in the standard fashion. These veins were found to be easily compressible with spontaneous blood flow. No evidence of insufficiency or thrombus noted. FINDINGS: no dvt CONCLUSIONS No evidence of right lower extremity DVT. No evidence of left lower extremity DVT. Riki Whitaker MD (Electronically Signed) Final Date: 04 May 2024 12:56 S
[2024-05-04 12:48] LABS: Anion Gap 13.8 (5-19); Blood Urea Nitrogen 20 mg/dL (8-23); Carbon Dioxide 26 mmol/L (22-29); Chloride 101 mmol/L (98-107); Creatinine Clr Calc Pharmacy 65.3531; Glucose 122 mg/dL (65-115); Magnesium 1.8 mg/dL (1.7-2.3); Osmolality Calculated 290 mOsm/kg (285-295); Phosphorus 2.1 mg/dL (2.5-4.5); Sodium 138 mmol/L (136-145)
[2024-05-04 12:51] LABS: Potassium 2.8 mmol/L (3.5-5.1)
--- NOTE | 2024-05-04 13:15 | P.PN_ITS ---
Subjective 2 Subjective: Patient was seen this morning, she is alert oriented x 3, following all commands she tells me she feels a lot better after her bowel movement, she tells me that after her hospitalization for her intractable back pain or left-sided sciatica, she has been try to manage her pain, she has not been using any narcotics at home but has been using Excedrin, but only a few times a week, she thinks because of the pain, she has been stooling less, she has had a colonoscopy she tells me, she has not had any abnormalities on her colonoscopy, denies any nausea, any vomiting, denies any lightheadedness, no dizziness, Vitals/I&O/Wt Last Vital Signs Temp 98.2 F 05/04/24 11:25 Pulse 77 05/04/24 11:25 Resp 16 05/04/24 11:25 BP 116/73 05/04/24 11:25 Pulse Ox 94 05/04/24 11:25 O2 Del Method Room Air 05/04/24 11:25 05/03/24 05/04/24 05/04/24 22:59 06:59 14:59 Intake Total 1580 / 1580 458 / 458 Balance 1580 / 1580 458 / 458 Weight last 48 hrs Weight 96.524 kg Weight 96.388 kg Weight 81.647 kg Physical Exam 2 Const: COMMON NORMALS: no acute distress and patient oriented x3 Resp: COMMON NORMALS: normal respiratory effort, No retractions, No use of accessory muscles and clear to auscultation bilaterally AUSCULTATION: clear to auscultation bilaterally Cardio: COMMON NORMALS: regular rate, regular rhythm, S1 normal heart sound present and S2 normal heart sound present RATE: regular rate RHYTHM: r egular rhythm HEART SOUNDS: S1 normal heart sound present and S2 normal heart sound present GI: COMMON NORMALS: Normal to inspection, nondistended, normoactive bowel sounds present and non-tender Extremity: COMMON NORMALS: no pedal edema Neuro: COMMON NORMALS: patient oriented x3 Psych: COMMON NORMALS: mental status grossly normal Data 05/04/24 10:28 05/04/24 12:09 Micro: Microbiology 05/04/24 03:20 Occult Blood (FIT) - Final Stool Routine Collection A&P Assessment and plan (1) Stercoral colitis: CT/CT abdomen pelvis w con* [id number] IMPRESSION: 1. Constipation. 2. Nonspecific edema in the perirectal soft tissues within the presacral space. Pathology such as stercoral colitis not excluded. Plan -Abdominal pain has significantly improved with a large bowel movement -She did have some clots passed for her large bowel movements -Continue to monitor hemoglobin closely -Monitor for bloody stools -Repeat KUB -Her hemoglobin -Continue Flagyl IV -Continue Rocephin -Hypokalemia hypophosphatemia replace IV (2) Constipation: (3) Dehydration: ? Continue IV fluids (4) Sciatica: Hold opioids. Continue acetaminophen, gabapentin, naproxen as needed, add lidocaine patch. (5) Urine retention: Has had difficulties voiding with severe constipation. On review of MRI no sign of cauda equina or severe spinal stenosis. Bladder scan is requested, please follow-up. Continue to treat constipation, consider Dominguez if significant retention or further difficulties. Additionally with UTI. Treat as below. (6) UTI (urinary tract infection): 11-20 WBC in urine, has had some difficulties voiding likely secondary constipation but appears also possible UTI. Received ceftriaxone, continue. Follow-up urine culture. Plan HTN: Continue clonidine, propranolol, diuretic for now with dehydration. Plan for today continue IV fluids, continue Rocephin, continue Flagyl, continue IV fluids, bowel regimen, monitor hemoglobin, Attestations 2 Medical Necessity Statement*: Patient requires hospitalization for constipation, sterile colitis, required IV antibiotics, serial abdominal exams, UTI requiring IV antibiotics, replacing electrolytes Diagnoses Stercoral colitis K52.89 Constipation K59.00 Dehydration E86.0 Sciatica M54.30 Urine retention R33.9 UTI (urinary tract infection) N39.0
[2024-05-04] MEDS: potassium chloride ER 20 mEq Tablet PO (13:36)
[2024-05-04] MEDS: magnesium lactate 84 mg Tablet PO (13:36)
[2024-05-04] MEDS: potassium phosphate (mEq K) 40 MEQ in sodium chloride 0.9% (100 ml) 100 ML 27.27 MEQ IV (14:44)
[2024-05-04] MEDS: famotidine 20 mg Tablet PO (20:15)
[2024-05-05] VITALS (8 sets, daily range): BP systolic 118–147; BP diastolic 64–74; PULSE 65–80; RESP 16–24; TEMP 36.4–36.9; O2SAT 94–96
[2024-05-05 05:12] LABS: Basophils % 0.2 %; Eosinophils # 0.1 10^3/uL (0.0-0.8); Eosinophils % 1.9 %; Hematocrit 28.4 % (36-47); Lymphocytes % 38.2 %; Mean Corpuscular HGB Conc 33.8 g/dL (30-55); Mean Corpuscular Hemoglobin 31.1 pg (27-33); Mean Corpuscular Volume 91.9 fl (85-98); Mean Platelet Volume 9.9 fL (7.4-10.4); Monocytes # 0.6 10^3/uL (0.2-0.9); Monocytes % 11.7 %; Neutrophils # 2.54 10^3/uL (1.8-7.7); Neutrophils % 47.6 %; Nucleated Red Blood Cells % 0 %; Platelet Count 165 10^3/cmm (157-399); Red Blood Count 3.09 10^6/uL (3.85-5.65); Red Cell Distribution Width 13.2 % (12.1-15.1); White Blood Count 5.32 10^3/uL (3.29-11.43)
[2024-05-05 05:33] LABS: Anion Gap 10.1 (5-19); Blood Urea Nitrogen 12 mg/dL (8-23); Calcium 7.7 mg/dL (8.5-10.5); Carbon Dioxide 27 mmol/L (22-29); Chloride 102 mmol/L (98-107); Creatinine Clr Calc Pharmacy 65.4362; Glucose 116 mg/dL (65-115); Osmolality Calculated 283 mOsm/kg (285-295); Potassium 3.1 mmol/L (3.5-5.1); Sodium 136 mmol/L (136-145)
[2024-05-05] MEDS: acetaminophen 325 mg Tablet 650 MG PO ×2 (06:13→19:50)
[2024-05-05] MEDS: lactated ringers 1,000 ML 75 ML IV (06:14)
[2024-05-05] MEDS: cloNIDine 0.1 mg Tablet 0.2 MG PO ×2 (09:09→17:34)
[2024-05-05] MEDS: magnesium lactate 84 mg Tablet PO (09:10)
[2024-05-05] MEDS: cefTRIAXone 1,000 mg SDV 1000 MG IVP (09:10)
[2024-05-05] MEDS: magnesium oxide 400 mg tablet 200 MG PO (09:10)
[2024-05-05] MEDS: pantoprazole 40 mg SDV IVP ×2 (09:11→19:50)
[2024-05-05] MEDS: bisacodyl 5 mg Tablet PO (09:11)
[2024-05-05] MEDS: polyethylene glycol 3350 Pkt 17 gm PO (09:11)
[2024-05-05] MEDS: metroNIDAZOLE IV 500 MG/100 ML PREMIX 100 MG IV ×3 (09:20→23:48)
[2024-05-05] MEDS: potassium phosphate (mEq K) 40 MEQ in sodium chloride 0.9% (100 ml) 100 ML 27.27 MEQ IV (11:03)
[2024-05-05] MEDS: gabapentin 300 mg Capsule PO ×2 (11:04→21:36)
--- NOTE | 2024-05-05 12:13 | P.PN_ITS ---
Subjective 2 Subjective: Patient was seen this morning, she has complaints of left hip pain, left-sided sciatica, does report fatigue, malaise, no nausea, no vomiting, still having adequate bowel movements Vitals/I&O/Wt Last Vital Signs Temp 98.3 F 05/05/24 07:53 Pulse 71 05/05/24 07:53 Resp 17 05/05/24 07:53 BP 147/71 05/05/24 09:09 Pulse Ox 95 05/05/24 07:53 O2 Del Method Room Air 05/05/24 07:53 05/04/24 05/05/24 05/05/24 22:59 06:59 14:59 Intake Total 308.5106 / 1766.5106 1037.5 / 2804.0106 340 / 340 Balance 308.5106 / 1766.5106 1037.5 / 2804.0106 340 / 340 Weight last 48 hrs Weight 96.751 kg Weight 96.524 kg Weight 96.388 kg Weight 81.647 kg Physical Exam 2 Const: COMMON NORMALS: no acute distress and patient oriented x3 Resp: COMMON NORMALS: normal respiratory effort, No retractions, No use of accessory muscles and clear to auscultation bilaterally AUSCULTATION: clear to auscultation bilaterally Cardio: COMMON NORMALS: regular rate, regular rhythm, S1 normal heart sound present and S2 normal heart sound present RATE: regular rate RHYTHM: r egular rhythm HEART SOUNDS: S1 normal heart sound present and S2 normal heart sound present GI: COMMON NORMALS: Normal to inspection, nondistended, normoactive bowel sounds present and non-tender Extremity: COMMON NORMALS: no pedal edema Neuro: COMMON NORMALS: patient oriented x3 Psych: COMMON NORMALS: mental status grossly normal Data 05/05/24 04:35 05/05/24 04:35 A&P Assessment and plan (1) Stercoral colitis: CT/CT abdomen pelvis w con* [id number] IMPRESSION: 1. Constipation. 2. Nonspecific edema in the perirectal soft tissues within the presacral space. Pathology such as stercoral colitis not excluded. Plan -Abdominal pain has significantly improved with a large bowel movement -She did have some clots passed for her large bowel movements -Continue to monitor hemoglobin closely -Monitor for bloody stools -Her hemoglobin -Continue Flagyl IV -Continue Rocephin -Hypokalemia hypophosphatemia replace IV (2) Constipation: (3) Dehydration: ? Continue IV fluids (4) Sciatica: Hold opioids. Continue acetaminophen, gabapentin, naproxen as needed, add lidocaine patch. (5) Urine retention: Has had difficulties voiding with severe constipation. On review of MRI no sign of cauda equina or severe spinal stenosis. Bladder scan is requested, please follow-up. Continue to treat constipation, consider Dominguez if significant retention or further difficulties. Additionally with UTI. Treat as below. (6) UTI (urinary tract infection): 11-20 WBC in urine, has had some difficulties voiding likely secondary constipation but appears also possible UTI. Received ceftriaxone, continue. Follow-up urine culture. (7) Anemia: Hemoglobin 9.6 ? No hemodynamic compromise ? No complaints currently of bloody or black stools Hemoccult stool is positive ? Iron studies, ferritin ? Monitor hemoglobin every 6 hours ? Continue Protonix, Carafate Plan HTN: Continue clonidine, propranolol, diuretic for now with dehydration. Lower back pain, left sciatica, start gabapentin 300 mg every 12 hours Plan for today continue Rocephin, continue Flagyl, monitor serum sodium, monitor hemoglobin Attestations 2 Medical Necessity Statement*: Patient requires hospitalization for acute anemia Diagnoses Stercoral colitis K52.89 Constipation K59.00 Dehydration E86.0 Sciatica M54.30 Urine retention R33.9 UTI (urinary tract infection) N39.0 Anemia D64.9
[2024-05-05] MEDS: sucralfate 1 gm Tablet PO ×3 (12:41→23:48)
[2024-05-05 12:54] LABS: Hematocrit 27.5 % (36-47)
[2024-05-05 13:14] LABS: Ferritin 189 ng/mL (15-150); Iron 56 ug/dL (37-145)
[2024-05-05 18:54] LABS: Hematocrit 28.4 % (36-47)
[2024-05-06] VITALS (7 sets, daily range): BP systolic 127–145; BP diastolic 75–81; PULSE 69–80; RESP 16–21; TEMP 36.7–36.9; O2SAT 95–97
[2024-05-06 04:30] LABS: Basophils % 0.2 %; Eosinophils # 0.2 10^3/uL (0.0-0.8); Eosinophils % 3.1 %; Hematocrit 28.2 % (36-47); Lymphocytes # 2.1 10^3/uL (0.8-4.8); Lymphocytes % 38.3 %; Mean Corpuscular HGB Conc 32.3 g/dL (30-55); Mean Corpuscular Hemoglobin 30.4 pg (27-33); Mean Corpuscular Volume 94.3 fl (85-98); Mean Platelet Volume 9.6 fL (7.4-10.4); Monocytes # 0.7 10^3/uL (0.2-0.9); Neutrophils # 2.53 10^3/uL (1.8-7.7); Nucleated Red Blood Cells % 0 %; Platelet Count 152 10^3/cmm (157-399); Red Blood Count 2.99 10^6/uL (3.85-5.65); Red Cell Distribution Width 13.4 % (12.1-15.1); White Blood Count 5.49 10^3/uL (3.29-11.43)
[2024-05-06 04:45] LABS: Anion Gap 9.5 (5-19); Blood Urea Nitrogen 9 mg/dL (8-23); Calcium 7.8 mg/dL (8.5-10.5); Carbon Dioxide 25 mmol/L (22-29); Chloride 107 mmol/L (98-107); Creatinine Clr Calc Pharmacy 66.4324; Glucose 115 mg/dL (65-115); Osmolality Calculated 286 mOsm/kg (285-295); Potassium 3.5 mmol/L (3.5-5.1); Sodium 138 mmol/L (136-145)
[2024-05-06] MEDS: sucralfate 1 gm Tablet PO ×3 (05:19→17:17)
[2024-05-06] MEDS: acetaminophen 325 mg Tablet 650 MG PO ×2 (05:31→23:05)
[2024-05-06] MEDS: ketorolac 30 mg/mL INJ 15 MG IVP (06:12)
[2024-05-06] MEDS: cloNIDine 0.1 mg Tablet 0.2 MG PO ×2 (08:38→17:17)
[2024-05-06] MEDS: bisacodyl 5 mg Tablet PO (08:38)
[2024-05-06] MEDS: cefTRIAXone 1,000 mg SDV 1000 MG IVP (08:39)
[2024-05-06] MEDS: magnesium lactate 84 mg Tablet PO (08:39)
[2024-05-06] MEDS: magnesium oxide 400 mg tablet 200 MG PO (08:39)
[2024-05-06] MEDS: gabapentin 300 mg Capsule PO ×4 (08:39→20:12)
[2024-05-06] MEDS: pantoprazole 40 mg SDV IVP ×2 (08:39→20:13)
[2024-05-06] MEDS: metroNIDAZOLE IV 500 MG/100 ML PREMIX 100 MG IV ×2 (08:40→17:18)
[2024-05-06] MEDS: polyethylene glycol 3350 Pkt 17 gm PO (08:41)
[2024-05-06] MEDS: cyclobenzaprine 10 mg Tablet 5 MG PO ×2 (15:10→20:13)
--- NOTE | 2024-05-06 15:21 | P.PN_ITS ---
Subjective 2 Subjective: Patient was seen this morning, she continues to complain of left hip pain, left sciatica pain, no fevers, no chills, no cough Vitals/I&O/Wt Last Vital Signs Temp 98.0 F 05/06/24 11:23 Pulse 70 05/06/24 11:23 Resp 16 05/06/24 11:23 BP 145/81 05/06/24 11:23 Pulse Ox 97 05/06/24 11:23 O2 Del Method Room Air 05/06/24 11:23 05/06/24 05/06/24 05/06/24 06:59 14:59 22:59 Intake Total 100 / 1593.5106 580 / 580 Balance 100 / 1593.5106 580 / 580 Weight last 48 hrs Weight 99.473 kg Weight 96.751 kg Physical Exam 2 Const: COMMON NORMALS: no acute distress and patient oriented x3 Resp: COMMON NORMALS: normal respiratory effort, No retractions, No use of accessory muscles and clear to auscultation bilaterally AUSCULTATION: clear to auscultation bilaterally Cardio: COMMON NORMALS: regular rate, regular rhythm, S1 normal heart sound present and S2 normal heart sound present RATE: regular rate RHYTHM: r egular rhythm HEART SOUNDS: S1 normal heart sound present and S2 normal heart sound present GI: COMMON NORMALS: Normal to inspection, nondistended, normoactive bowel sounds present and non-tender Extremity: COMMON NORMALS: no pedal edema Neuro: COMMON NORMALS: patient oriented x3 Psych: COMMON NORMALS: mental status grossly normal Data 05/06/24 03:57 05/06/24 03:57 A&P Assessment and plan (1) Stercoral colitis: CT/CT abdomen pelvis w con* [id number] IMPRESSION: 1. Constipation. 2. Nonspecific edema in the perirectal soft tissues within the presacral space. Pathology such as stercoral colitis not excluded. Plan -Abdominal pain has significantly improved with a large bowel movement -She did have some clots passed for her large bowel movements -Continue to monitor hemoglobin closely -Monitor for bloody stools -Her hemoglobin -Continue Flagyl IV -Continue Rocephin -Hypokalemia hypophosphatemia replace IV (2) Constipation: (3) Dehydration: ? Continue IV fluids (4) Sciatica: Increase gabapentin to 300 twice daily 1. Dose IV Decadron (5) Urine retention: Monitor (6) UTI (urinary tract infection): 11-20 WBC in urine, has had some difficulties voiding likely secondary constipation but appears also possible UTI. Received ceftriaxone, continue. Follow-up urine culture. (7) Anemia: Hemoglobin 9.6 ? No hemodynamic compromise ? No complaints currently of bloody or black stools Hemoccult stool is positive ? Iron studies, ferritin ? Monitor hemoglobin every 6 hours ? Continue Protonix, Carafate Plan HTN: Continue clonidine, propranolol, diuretic for now with dehydration. Plan for today continue Rocephin, continue Flagyl, monitor serum sodium, monitor hemoglobin, increased dose of gabapentin, low-dose Decadron, PT OT Attestations 2 Medical Necessity Statement*: Patient requires hospitalization for UTI, left sciatic related pain, left lower back pain, anemia Diagnoses Stercoral colitis K52.89 Constipation K59.00 Dehydration E86.0 Sciatica M54.30 Urine retention R33.9 UTI (urinary tract infection) N39.0 Anemia D64.9
[2024-05-06] MEDS: dexamethasone 10 mg/mL INJ 6 MG IVP (17:16)
[2024-05-07] VITALS (8 sets, daily range): BP systolic 119–156; BP diastolic 70–86; PULSE 17–90; RESP 16–20; TEMP 36.4–36.9; O2SAT 96–97
[2024-05-07] MEDS: sucralfate 1 gm Tablet PO ×5 (00:13→23:26)
[2024-05-07] MEDS: metroNIDAZOLE IV 500 MG/100 ML PREMIX 100 MG IV ×2 (00:14→10:31)
[2024-05-07] MEDS: cyclobenzaprine 10 mg Tablet 5 MG PO ×3 (01:18→23:27)
[2024-05-07 03:27] LABS: Hematocrit 29.6 % (36-47); Lymphocytes # 0.7 10^3/uL (0.8-4.8); Lymphocytes % 15.6 %; Mean Corpuscular HGB Conc 32.8 g/dL (30-55); Mean Corpuscular Hemoglobin 30.5 pg (27-33); Mean Corpuscular Volume 93.1 fl (85-98); Mean Platelet Volume 9.6 fL (7.4-10.4); Monocytes # 0.2 10^3/uL (0.2-0.9); Monocytes % 4.1 %; Neutrophils % 79.2 %; Nucleated Red Blood Cells % 0 %; Platelet Count 157 10^3/cmm (157-399); Red Blood Count 3.18 10^6/uL (3.85-5.65); Red Cell Distribution Width 13.1 % (12.1-15.1); White Blood Count 4.42 10^3/uL (3.29-11.43)
[2024-05-07 03:47] LABS: Anion Gap 13.9 (5-19); Blood Urea Nitrogen 10 mg/dL (8-23); Calcium 8.2 mg/dL (8.5-10.5); Carbon Dioxide 23 mmol/L (22-29); Chloride 109 mmol/L (98-107); Creatinine Clr Calc Pharmacy 66.4324; Glucose 152 mg/dL (65-115); Osmolality Calculated 296 mOsm/kg (285-295); Potassium 3.9 mmol/L (3.5-5.1); Sodium 142 mmol/L (136-145)
[2024-05-07] MEDS: acetaminophen 325 mg Tablet 650 MG PO (05:34)
--- NOTE | 2024-05-07 08:59 | PC.CHAP ---
Pastoral Care Encounter/Spiritual Assessment Type of Contact [] Declined housing development specialist visit [] Patient/Family/Request visit [] Outpatient visit [] Follow-up visit [] Physician referral [] Code/Alert [x] Routine visit [] Staff referral [] Actively dying [] Patient sleeping [] Family support [] [] Out of room [] Palliative care [] [x] Receiving care in room [] Pre-surgical visit [] Trauma [] Long length of stay [] ICU visit [] Other: Relational/Emotional Strength [] Patient feels connected with others/family/visitors/staff [] Distress [] Loneliness/isolation [] Abandonment Spirituality of Patient [] Person of Rufina [] Attends Congregational of their [place]ufina [] Believes in Prayer [] Reads Bible or Catholic materials [] There are Spiritual issues to be addressed Floor Layer Tile Interventions [x] Prayer [] Active listening [] Non-anxious presence [] Spiritual/emotional support [] Crisis/trauma care [] Spiritual counseling [] Bereavement support [] Provided bereavement packet [] Provided Bible/devotional materials [] Provided toy/stuffed animal, coloring book to patient or family member [] Provided Communion [] Anointing/[place] [] Salvation [] Completed spiritual assessment [] Other: Impact on Illness or Injury [] Angry [] Fearful [] Anxious [] Often cries [] Exhaustion [] Unable to work [] Unable to attend alevism [] Unable to walk/stand [] Unable to read [] Unable to drive [] Unable to eat/drink [] Unable to sleep [] Unable to be with family [] Patient intubated [] Other: Summary Time spent with patient
[2024-05-07] MEDS: gabapentin 300 mg Capsule PO ×3 (10:27→21:12)
[2024-05-07] MEDS: magnesium oxide 400 mg tablet 200 MG PO (10:27)
[2024-05-07] MEDS: bisacodyl 5 mg Tablet PO (10:27)
[2024-05-07] MEDS: cloNIDine 0.1 mg Tablet 0.2 MG PO ×2 (10:27→17:21)
[2024-05-07] MEDS: magnesium lactate 84 mg Tablet PO (10:29)
[2024-05-07] MEDS: pantoprazole 40 mg SDV IVP ×2 (10:29→21:12)
[2024-05-07] MEDS: cefTRIAXone 1,000 mg SDV 1000 MG IVP (10:30)
[2024-05-07] MEDS: TRAMadol 50 mg Tablet PO ×3 (10:31→23:26)
--- NOTE | 2024-05-07 14:45 | P.PN_ITS ---
Subjective 2 Subjective: - Patient was seen this morning she cont inues to complain of severe low back pain, left lower extremity -No urinary continence, no bowel inconti nence, no saddle or perineal anesthesia -We discussed that we have already incre ased her gabapentin to 300 mg 3 times daily, for the short-term I would recommend keeping it at this dose, as there is a high risk of increasing side effects beyond this dose as an initial start of the medication, she cannot really feel significant benefit right now but it might take time ? She has tried Flexeril it is minimally helped, she has a 3 times daily as needed -She did receive steroids today also had minimal benefit -She does tell me that Toradol helped, b ut she did have episodes of bloody stools and there is a risk of bleeding with Toradol -We discussed trying tramadol 50 mg ever y 4-6 as needed to see if that may be helps I did tell her that tramadol is a narcotic medication not as strong as the other narcotic pain medications but it is associated with the risks of overdose, addiction, constipation, but as she continues to have severe pain that is affecting her range of motion, her daily activities that we will going to have to try to get her pain under control she is on a scheduled bed bowel regimen including Dulcolax, MiraLAX, so I think we will get ahead of her constipation this time -According to nursing staff tramadol is providing minimal relief -Will continue to monitor I have placed on low-dose oxycodone 2.5 mg p.o. every 12 hours as needed for severe breakthrough pain patient is doing her best to avoid narcotic pain medications due to her severe constipation but at this point I do not really have anything else to offer to her in terms of medications -Will continue to monitor Vitals/I&O/Wt Last Vital Signs Temp 98.4 F 05/07/24 12:00 Pulse 87 05/07/24 12:00 Resp 16 05/07/24 12:00 BP 119/70 05/07/24 12:00 Pulse Ox 96 05/07/24 12:00 O2 Del Method Room Air 05/07/24 04:00 05/06/24 05/07/24 05/07/24 22:59 06:59 14:59 Intake Total 340 / 920 100 / 1020 340 / 340 Output Total 600 / 600 Balance -260 / 320 100 / 420 340 / 340 Weight last 48 hrs Weight 98.747 kg Weight 99.473 kg Physical Exam 2 Const: COMMON NORMALS: no acute distress and patient oriented x3 Resp: COMMON NORMALS: normal respiratory effort, No retractions, No use of accessory muscles and clear to auscultation bilaterally AUSCULTATION: clear to auscultation bilaterally Cardio: COMMON NORMALS: regular rate, regular rhythm, S1 normal heart sound present and S2 normal heart sound present RATE: regular rate RHYTHM: r egular rhythm HEART SOUNDS: S1 normal heart sound present and S2 normal heart sound present GI: COMMON NORMALS: Normal to inspection, nondistended, normoactive bowel sounds present and non-tender Extremity: COMMON NORMALS: no pedal edema Neuro: COMMON NORMALS: patient oriented x3 Psych: COMMON NORMALS: mental status grossly normal Data 05/07/24 02:33 05/07/24 02:33 A&P Assessment and plan (1) Stercoral colitis: CT/CT abdomen pelvis w con* [id number] IMPRESSION: 1. Constipation. 2. Nonspecific edema in the perirectal soft tissues within the presacral space. Pathology such as stercoral colitis not excluded. Plan -Abdominal pain has significantly improved with a large bowel movement -She did have some clots passed for her large bowel movements, none since admission -Continue to monitor hemoglobin closely -Monitor for bloody stools -Monitor her hemoglobin Stop Flagyl -Hypokalemia hypophosphatemia replace IV -Placed on MiraLAX 17 g once daily with Dulcolax once daily (2) Constipation: (3) Dehydration: ? Continue IV fluids (4) Sciatica: Severe low back pain and left-sided sciatica -MRI 04/24/2022 showed MR/MR lumbar spine wo con* [id number] IMPRESSION: Images significantly degraded by motion. MRI could be repeated when pain is better controlled. 1. Compression fracture chronicity difficult to evaluate due to extensive motion. 2. Mild compression superior endplate L1 with endplate Schmorl's node with trace edema may be subacute to chronic. 3. Tiny amount of edema in the superior end plate L2 may be due to slight recent compression. 4. No high-grade central canal stenosis. 5. Moderate LEFT L5-S1 foraminal narrowing with a LEFT foraminal protrusion Plan ? Continue PT OT Decadron 6 mg IV push every 24 hours ? Gabapentin 300 mg 3 times daily Flexeril 5 mg 3 times daily ? Tramadol 50 mg every 6 hours as needed # Low-dose oxycodone 2.5 mg p.o. every 12 hours for severe breakthrough pain ? Bowel regimen as above to prevent recurrent constipation (5) Urine retention: Monitor (6) UTI (urinary tract infection): Continue Rocephin (7) Anemia: Hemoglobin 9.6 ? No hemodynamic compromise ? No complaints currently of bloody or black stools Hemoccult stool is positive ? Iron studies, ferritin ? Monitor hemoglobin every 6 hours ? Continue Protonix, Carafate Plan HTN: Continue clonidine, propranolol, diuretic for now with dehydration. Attestations 2 Medical Necessity Statement*: Patient requires hospitalization for severe low back pain, intractable pain Diagnoses Stercoral colitis K52.89 Constipation K59.00 Dehydration E86.0 Sciatica M54.30 Urine retention R33.9 UTI (urinary tract infection) N39.0 Anemia D64.9
[2024-05-07] MEDS: dexamethasone 10 mg/mL INJ 6 MG IVP (15:38)
[2024-05-08] VITALS (7 sets, daily range): BP systolic 121–161; BP diastolic 58–93; PULSE 71–76; RESP 16–20; TEMP 36.4–36.9; O2SAT 95–97
[2024-05-08] MEDS: TRAMadol 50 mg Tablet PO ×2 (06:01→12:33)
[2024-05-08] MEDS: sucralfate 1 gm Tablet PO ×2 (06:02→11:51)
[2024-05-08] MEDS: cyclobenzaprine 10 mg Tablet 5 MG PO (07:17)
[2024-05-08] MEDS: gabapentin 300 mg Capsule PO (08:23)
[2024-05-08] MEDS: bisacodyl 5 mg Tablet PO (08:23)
[2024-05-08] MEDS: cloNIDine 0.1 mg Tablet 0.2 MG PO (08:24)
[2024-05-08] MEDS: magnesium lactate 84 mg Tablet PO (08:24)
[2024-05-08] MEDS: cefTRIAXone 1,000 mg SDV 1000 MG IVP (08:26)
[2024-05-08] MEDS: pantoprazole 40 mg SDV IVP (08:26)
[2024-05-08] MEDS: magnesium oxide 400 mg tablet 200 MG PO (08:26)
--- NOTE | 2024-05-08 09:23 | PC.CHAP ---
Pastoral Care Encounter/Spiritual Assessment Type of Contact [] Declined punchboard assembler visit [] Patient/Family/Request visit [] Outpatient visit [] Follow-up visit [] Physician referral [] Code/Alert [x] Routine visit [] Staff referral [] Actively dying [] Patient sleeping [] Family support [] [] Out of room [] Palliative care [] [] Receiving care in room [] Pre-surgical visit [] Trauma [] Long length of stay [] ICU visit [] Other: Relational/Emotional Strength [x] Patient feels connected with others/family/visitors/staff [] Distress [] Loneliness/isolation [] Abandonment Spirituality of Patient [x] Person of Rufina [] Attends Christianity of their Rufina [x] Believes in Prayer [] Reads Bible or Latter Day materials [] There are Spiritual issues to be addressed Electrician Telephone Interventions [x] Prayer [x] Active listening [] Non-anxious presence [x] Spiritual/emotional support [] Crisis/trauma care [] Spiritual counseling [] Bereavement support [] Provided bereavement packet [] Provided Bible/devotional materials [] Provided toy/stuffed animal, coloring book to patient or family member [] Provided Communion [] Anointing/Tatums [] Salvation [x] Completed spiritual assessment [] Other: Impact on Illness or Injury [] Angry [] Fearful [] Anxious [] Often cries [] Exhaustion [] Unable to work [] Unable to attend amish [] Unable to walk/stand [] Unable to read [] Unable to drive [] Unable to eat/drink [] Unable to sleep [] Unable to be with family [] Patient intubated [] Other: Summary Time spent with patient 5 min
--- NOTE | 2024-05-08 10:20 | P.DS_ITS ---
Discharge Providers Date of Admission: 05/04/24 13:20 Date of Discharge: May 08, 2024 Attending Provider at Admission: Bart Asher Attending Provider at Discharge: Ludin Vyas MD Primary Care Provider: Morelia Iglesias NP Diagnoses at Discharge Discharge Diagnosis (1) Stercoral colitis: Status: Acute (2) Constipation: Status: Acute (3) Dehydration: Status: Acute (4) Sciatica: Status: Acute (5) Urine retention: Status: Acute (6) UTI (urinary tract infection): Status: Acute (7) Anemia: Status: Acute Reason for Visit Reason for Visit: rectum pain, low back pain Hospital Course Hospital Course This is a 79-year-old female with a past medical history of spinal stenosis of the lumbar spine, who presents [facility] due to lower back pain, left lower extremity radicular sciatic related pain, abdominal pain Patient was admitted to [facility] for stercoral colitis, severe constipation related to narcotic use, she received IV fluids, bowel regimen, had large bowel movements, abdominal pain resolved, was managed with antibiotic therapy that has been discontinued. On discharge she will be discharged on a regular bowel regimen, MiraLAX, with Dulcolax, with a close follow-up with general surgery as outpatient Patient had acute anemia during the hospitalization, could be from hemorrhoidal bleeding, nonetheless have discharged her on Protonix, Carafate advised for her to hold naproxen/ibuprofen at home, follow-up with general surgery for consideration of EGD and colonoscopy as outpatient For patient's severe low back pain left-sided sciatica she had an MRI 04/24/2024 MR/MR lumbar spine wo con* [id number] IMPRESSION: Images significantly degraded by motion. MRI could be repeated when pain is better controlled. 1. Compression fracture chronicity difficult to evaluate due to extensive motion. 2. Mild compression superior endplate L1 with endplate Schmorl's node with trace edema may be subacute to chronic. 3. Tiny amount of edema in the superior end plate L2 may be due to slight recent compression. 4. No high-grade central canal stenosis. 5. Moderate LEFT L5-S1 foraminal narrowing with a LEFT foraminal protrusion -No urine incontinence, no bowel incontinence, no saddle or perineal anesthesia -But continued to have severe lower back pain, left sciatica related pain -Due to concerns for narcotic induced constipation narcotics were held initially -She was managed on steroid therapy, muscle relaxers, gabapentin -Dose of muscle relaxers were increased, steroid therapy was increased g abapentin was increased to 300 3 times daily -Continue to have lower back pain, could not use an anti-inflammatory medication given her anemia, concerns for bloody stools ? That she was managed on tramadol up to 50 mg every 4 hours without any significant benefit -Thus after discussing with her the risk and benefits, we tried her on the low- dose oxycodone 2.5 mg p.o. every 8 hours as needed -This dose of oxycodone significantly due to her pain so that she was functional -Will discharge her on this dose advised to use very sparingly, do not drive or operate heavy machinery or drink while taking medication -Will discharge on her regular bowel regimen to prevent opioid-induced constipation Physical Exam Const: COMMON NORMALS: no acute distress and patient oriented x3 Resp: COMMON NORMALS: normal respiratory effort, No retractions, No use of accessory muscles and clear to auscultation bilaterally AUSCULTATION: clear to auscultation bilaterally Cardio: COMMON NORMALS: regular rate, regular rhythm, S1 normal heart sound present and S2 normal heart sound present RATE: regular rate RHYTHM: regul ar rhythm HEART SOUNDS: S1 normal heart sound present and S2 normal heart sound present GI: COMMON NORMALS: Normal to inspection, nondistended, normoactive bowel sounds present Extremity: COMMON NORMALS: no pedal edema Neuro: COMMON NORMALS: patient oriented x3 Psych: COMMON NORMALS: mental status grossly normal Discharge Data Studies Completed and Pending Completed Studies During Hospitalization Category Date Time Status CT abdomen pelvis w con* [id number] Stat Cat Scan 05/03/24 17:42 Completed XR KUB [id number] Stat Exams 05/03/24 15:57 Completed XR KUB portable [id number] Routine Exams 05/04/24 08:52 [place] [id number] Stat Ultrasound 05/04/24 11:04 Completed Radiology Impressions Abdomen/Pelvis CT 05/03/24 17:42 IMPRESSION: 1. Constipation. 2. Nonspecific edema in the perirectal soft tissues within the presacral space. Pathology such as stercoral colitis not excluded. COMMENTS: Consistent with the [employer]'s Incidental Findings Committee white paper (J Am Aliza Radiol 2018): Any incidental renal lesion less than 1 cm or classified as too small to characterize, or any incidental cystic renal lesion characterized as simple-appearing, is likely benign. No follow-up imaging is recommended for these lesions per consensus recommendations based on imaging criteria. KUB X-Ray 05/04/24 08:52 Impression: Mild generalized ileus with decrease in fecal material. Laboratory Results WBC 4.42 10^3/uL (3.29-11.43) 05/07/24 02:33 RBC 3.18 10^6/uL (3.85-5.65) L 05/07/24 02:33 Hgb 9.70 g/dL (11.27-16.99) L 05/07/24 02:33 Hct 29.6 % (36-47) L 05/07/24 02:33 MCV 93.1 fl (85-98) 05/07/24 02:33 MCH 30.5 pg (27-33) 05/07/24 02:33 MCHC 32.8 g/dL (30-55) 05/07/24 02:33 RDW 13.1 % (12.1-15.1) 05/07/24 02:33 Plt Count 157 10^3/cmm (157-399) 05/07/24 02:33 MPV 9.6 fL (7.4-10.4) 05/07/24 02:33 Neut % (Auto) 79.2 % 05/07/24 02:33 Lymph % (Auto) 15.6 % 05/07/24 02:33 [place] % (Auto) 4.1 % 05/07/24 02:33 Eos % (Auto) 0.0 % 05/07/24 02:33 Baso % (Auto) 0.0 % 05/07/24 02:33 Neut # (Auto) 3.50 10^3/uL (1.8-7.7) 05/07/24 02:33 Lymph # (Auto) 0.7 10^3/uL (0.8-4.8) L 05/07/24 02:33 [place] # (Auto) 0.2 10^3/uL (0.2-0.9) 05/07/24 02:33 Eos # (Auto) 0.0 10^3/uL (0.0-0.8) 05/07/24 02:33 Baso # (Auto) 0.0 10^3/uL (0.0-0.1) 05/07/24 02:33 Nucleated RBC % (auto) 0 % 05/07/24 02:33 Nucleated RBCs # 0.0 /100WBC 05/07/24 02:33 Sodium 142 mmol/L (136-145) 05/07/24 02:33 Potassium 3.9 mmol/L (3.5-5.1) 05/07/24 02:33 Chloride 109 mmol/L (98-107) H 05/07/24 02:33 Carbon Dioxide 23 mmol/L (22-29) 05/07/24 02:33 Anion Gap 13.9 (5-19) 05/07/24 02:33 BUN 10 mg/dL (8-23) 05/07/24 02:33 Creatinine 0.5 mg/dL (0.5-0.9) 05/07/24 02:33 GFR Calculation Not Reportable 05/07/24 02:33 Glucose 152 mg/dL (65-115) H 05/07/24 02:33 Calculated Osmolality 296 mOsm/kg (285-295) H 05/07/24 02:33 Calcium 8.2 mg/dL (8.5-10.5) L 05/07/24 02:33 Phosphorus 2.1 mg/dL (2.5-4.5) L 05/04/24 12:09 Magnesium 1.8 mg/dL (1.7-2.3) 05/04/24 12:09 Iron 56 ug/dL (37-145) 05/05/24 12:48 Ferritin 189 ng/mL (15-150) H 05/05/24 12:48 Total Bilirubin 0.5 mg/dL (0.15-1.2) 05/03/24 17:13 AST 18 U/L (0-32) 05/03/24 17:13 ALT 24 U/L (0-33) 05/03/24 17:13 Alkaline Phosphatase 70 U/L (35-105) 05/03/24 17:13 Total Protein 6.7 g/dL (6.6-8.7) 05/03/24 17:13 Albumin 3.9 g/dL (3.5-5.2) 05/03/24 17:13 Globulin 2.8 g/dL (1.3-4.6) 05/03/24 17:13 Urine Color Dark yellow (Yellow) A 05/03/24 17:58 Urine Appearance Cloudy (CLEAR) A 05/03/24 17:58 Urine pH 6.0 (5-7) 05/03/24 17:58 Ur Specific [place] 1.035 (1.005-1.030) H 05/03/24 17:58 Urine Protein 1+ (Negative) A 05/03/24 17:58 Urine Glucose (UA) Negative (Normal) 05/03/24 17:58 Urine Ketones 1+ (Negative) H 05/03/24 17:58 Urine Blood Negative (Negative) 05/03/24 17:58 Urine Nitrate Negative (Negative) 05/03/24 17:58 Urine Bilirubin Negative (Negative) 05/03/24 17:58 Urine Urobilinogen 1.0 mg/dL (Negative) 05/03/24 17:58 Ur Leukocyte Esterase 1+ (Negative) A 05/03/24 17:58 Urine RBC 6-10 /hpf (0-2) 05/03/24 17:58 Urine WBC 11-20 /hpf (0-5) H 05/03/24 17:58 Ur Squamous Epith Cells 51-100 /hpf (0-5) 05/03/24 17:58 Amorphous Sediment Not Reportable 05/03/24 17:58 Urine Bacteria 1+ /hpf (NONE) H 05/03/24 17:58 Hyaline Casts 25.63 /lpf 05/03/24 17:58 Vitals Last Vital Signs Temp 97.5 F L 05/08/24 07:45 Pulse 72 05/08/24 07:45 Resp 17 05/08/24 07:45 BP 161/93 05/08/24 08:24 Pulse Ox 97 05/08/24 07:45 O2 Del Method Room Air 05/08/24 07:45 Discharge Plan Discharge Patient Disposition: Home Condition: Stable Prescriptions: New polyethylene glycol 3350 17 gram Powder In Packet 17 g PO DAILY PRN (Reason: constipation) 30 Days Qty: 30 0RF sucralfate 1 gram Tablet 1 g PO Q12H 30 Days Qty: 60 0RF gabapentin 300 mg Capsule 300 mg PO TID 30 Days Qty: 90 0RF oxycodone 5 mg Tablet 2.5 mg PO Q8H PRN (Reason: Severe Pain) 7 Days Qty: 11 0RF pantoprazole [Protonix] 40 mg tablet,delayed release (DR/EC) 40 mg PO DAILY 30 Days Qty: 30 0RF bisacodyl [Alophen (bisacodyl)] 5 mg tablet,delayed release (DR/EC) 5 mg PO DAILY PRN (Reason: constipation) 30 Days Qty: 30 0RF prednisone 20 mg tablet 20 mg PO BID 5 Days Qty: 10 0RF Continued clonidine HCl 0.2 mg tablet 0.2 mg PO BID famotidine 20 mg Tablet 20 mg PO BEDTIME hydrochlorothiazide 25 mg tablet 25 mg PO DAILY propranolol 120 mg capsule,extended release 24 hr 120 mg PO DAILY magnesium 200 mg Tablet 200 mg PO DAILY cholecalciferol (vitamin D3) [Vitamin D3] 125 mcg (5,000 unit) Tablet 125 mcg PO DAILY omega-3 fatty acids-vitamin E 1,000 mg Capsule 1 cap PO DAILY Discontinued naproxen 500 mg tablet 500 mg PO BID PRN (Reason: pain) Qty: 30 0RF Discharge Orders: Discharge Order (Routine); Ordered 05/08/24 Ordered By: Ludin Vyas Referrals: [facility] [Outside] Rene Scott DO [Physician] - (colonoscopy We have notified your physician's clinic of the need for a follow-up appointment to be scheduled. If you have not heard from them within the next 2 business days, please call them directly. ) Morelia Iglesias NP [Primary Care Provider] - 05/14/24 3:00 pm Discharge Diet: Cardiac Discharge Activity: Resume usual activity Patient Instructions: Opioid Safety Activity Restrictions/Additional Instructions: - Please follow-up with primary care provider in 1 week ? Please use oxycodone sparingly for pain, do not drive or operate heavy machinery or drink alcohol while taking medication ? Please do not take gabapentin while driving or operate heavy machinery or drinking alcohol -Please follow-up with pain clinic in 2 weeks -Please follow-up with Dr. Scott in 4 weeks for consideration of EGD due to Hemoccult positive stools, acute anemia -Please avoid ibuprofen and naproxen for now -Please use MiraLAX and Dulcolax once daily, as you are on narcotics as a high risk of constipation I would continue these medications once daily until you have a regular soft bowel movement once daily. Once this happens then you can use them as needed -Please hydrate well -Please have your primary care provider refer you to Dr. Scales interventional pain specialist in [place] Discharge Attestations Time Spent in Discharge Care*: greater than 30 min Quality Metrics Clinical Quality Measures [ No reported AMI, CVA or VTE this stay] Coding Level of Care Code 84919 Total time (in minutes) for Discharge: 45 Diagnoses Stercoral colitis K52.89 Constipation K59.00 Dehydration E86.0 Sciatica M54.30 Urine retention R33.9 UTI (urinary tract infection) N39.0 Anemia D64.9
[2024-05-08] MEDS: oxyCODONE 5 mg IR Tab/Cap 2.5 MG PO (13:19)
== END 2024-05-08 14:00 | disposition home health service (06) | DRG 392 ==
LOC: ER 21:25 → MEDSURG 21:33
PROVIDERS: Family Medicine; Admitting Provider Internal Medicine; Emergency Provider Emergency Medicine; PCP Nurse Practitioner Family; Visit Provider Family Medicine
DX: K52.89 Other specified noninfective gastroenteritis and colitis (principal); N39.0 Urinary tract infection, site not specified; K59.03 Drug induced constipation; T40.605A Adverse effect of unspecified narcotics, initial encounter; E86.0 Dehydration; M48.061 Spinal stenosis, lumbar region without neurogenic claudication; M51.17 Intervertebral disc disorders with radiculopathy, lumbosacral region; R33.9 Retention of urine, unspecified; D64.9 Anemia, unspecified; I10 Essential (primary) hypertension; M25.552 Pain in left hip
CPT/HCPCS: 36415; 51798; 74018; 74177; 80048; 80053; 81001; 82274; 82728; 83540; 83735; 84100; 85014; 85018; 85025; 93005; 93970; 96361; 96372; 96374; 96375; 97110; 97116; 97161; 97165; 97530; 97535; 99285; G0378; J0696; J1100; J1170; J1650; J1885; J2470; J3490; J7030; J7120

== ENCOUNTER → 2024-05-15 14:39 | Outpatient (BNVA) | payer MEDICARE, BC, SELFPAY | PROVIDERS: PCP Nurse Practitioner Family; Referring Provider Internal Medicine; Visit Provider Orthopaedic Surgery | DX: M54.50 Low back pain, unspecified (principal); M48.062 Spinal stenosis, lumbar region with neurogenic claudication | CPT/HCPCS: 72100; 99204 ==

== ENCOUNTER → 2024-09-24 13:15 | Outpatient (BNVA) | payer MEDICARE, BC, SELFPAY | PROVIDERS: PCP Nurse Practitioner Family; Visit Provider Anesthesiology Pain Medicine | DX: M48.062 Spinal stenosis, lumbar region with neurogenic claudication (principal); M51.16 Intervertebral disc disorders with radiculopathy, lumbar region | CPT/HCPCS: 99204 ==

== ENCOUNTER → 2024-10-15 11:16 | Outpatient (BNVA) | payer MEDICARE, BC, SELFPAY | PROVIDERS: PCP Nurse Practitioner Family; Visit Provider Anesthesiology Pain Medicine | DX: M48.062 Spinal stenosis, lumbar region with neurogenic claudication (principal); M51.16 Intervertebral disc disorders with radiculopathy, lumbar region | CPT/HCPCS: 99214 ==

== ENCOUNTER 2025-04-09 12:31 | Outpatient (CLI) | payer MEDICARE, BC, SELFPAY ==
--- NOTE | 2025-04-09 12:38 | XR_ITS ---
WS: [id number] DEXA (DUAL ENERGY X-RAY ABSORPTIOMETRY) Bone mineral density was performed using a Weft machine. HISTORY: ASYMPTOMATIC MENOPAUSAL STATE COMPARISON: None available. Lumbar spine BMD (L1-L4): 1.039 g/cm2 T score: -1.2 Z score: -0.2 Total hip BMD: Left: 0.892 g/cm2. T score: -0.9 Z score: 0.4 Right: 0.899 g/cm2. T score: -0.9 Z score: 0.5 10 year probability of a major osteoporotic fracture is 20.9%. XR/XR DEXA axial skeleton* [id number] IMPRESSION: NORMAL BONE MINERAL DENSITY based upon the WHO classification for females.
== END 2025-04-09 12:32 | disposition home or self-care (01) ==
LOC: RAD 12:33
PROVIDERS: PCP Nurse Practitioner Family; Visit Provider Nurse Practitioner Family
DX: Z13.820 Encounter for screening for osteoporosis (principal); Z78.0 Asymptomatic menopausal state
CPT/HCPCS: 77080